=== PATIENT | male | born 1965 | race Caucasian/White ===

== ENCOUNTER → 2018-05-31 | Outpatient (CLI) | payer BC ==
--- NOTE | 2018-05-31 17:52 | US ---
EXAMINATION TYPE: US carotid duplex BILAT DATE OF EXAM: 05/31/2018 COMPARISON: NONE CLINICAL HISTORY: H53.9 visual disturbance. EXAM MEASUREMENTS: RIGHT: Peak Systolic Velocity (PSV) cm/sec ----- Right CCA: 123.8 ----- Right ICA: 75.6 ----- Right ECA: 115.8 ICA/CCA ratio: 0.6 RIGHT: End Diastole cm/sec ----- Right CCA: 23.6 ----- Right ICA: 16.1 ----- Right ECA: 20.4 LEFT: Peak Systolic Velocity (PSV) cm/sec ----- Left CCA: 113.5 ----- Left ICA: 105.7 ----- Left ECA: 113.5 ICA/CCA ratio: 0.9 LEFT: End Diastole cm/sec ----- Left CCA: 28.0 ----- Left ICA: 21.5 ----- Left ECA: 15.0 VERTEBRALS (direction of flow): Right Vertebral: Antegrade Left Vertebral: Antegrade Rhythm: Normal Abnormally elevated PSV noted proximal bilateral CCA without evidence of stenosis Incidental finding of right thyroid nodule is noted. IMPRESSION: There is antegrade flow in the vertebral arteries. The images and measurements suggest 1 0-20% stenosis in the common and internal carotid arteries. Criteria for Assigning % of Stenosis / Diameter reduction (Estimation based on the indirect measurements of the internal carotid artery velocities (ICA PSV). 1. Normal (no stenosis)=ICA PSV < 125 cm/s: ratio < 2.0: ICA EDV<40 cm/s. 2. Less than 50% stenosis=ICA PSV < 125 cm/s: ratio < 2.0: ICA EDV<40 cm/s. 3. 50 to 69% stenosis=ICA PSV of 125 to 230 cm/s: ration 2.0 ? 4.0: ICA EDV 40-100 cm/s. 4. Greater than 70% stenosis to near occlusion= ICA PSV > 230 cm/s: ratio > 4.0: ICA EDV > 100 cm/s. 5. Near occlusion= ICA PSV velocities may be low or undetectable: variable ratio and ICA EDV. 6. Total occlusion=unable to detect flow.
== END | disposition home or self-care (01) ==
LOC: RADUSWWP 16:04
PROVIDERS: ATTEND Family Medicine
DX: H53.9 Unspecified visual disturbance (principal)
CPT/HCPCS: 93880

== ENCOUNTER → 2018-08-29 | Outpatient (CLI) | payer BC ==
--- NOTE | 2018-08-29 16:06 | US ---
EXAMINATION TYPE: US thyroid st tissue head/neck DATE OF EXAM: 08/29/2018 COMPARISON: NONE CLINICAL HISTORY: E04.1 Thyroid nodule. GLAND SIZE: Right Lobe: 5.4 x 1.7 x 2.0 cm Overall Parenchyma: homogenous Left Lobe: 4.2 x 1.8 x 1.8 cm Overall Parenchyma: homogeneous Isthmus Thickness: 0.4 cm NODULES RIGHT: # of nodules measured on right: 1 1. 1.4 X 0.8 x 0.9 cm hypoechoic solid nodule at the mid pole with well-defined margins. This nodu le is taller than wide and shows intranodular vascularity. LEFT: # of nodules measured on left: 1 1. 0.6 X 0.5 x 0.5 cm hypoechoic solid nodule at the lower pole with well-defined margins. This no dule is wider than tall and shows no intranodular vascularity. ISTHMUS: # of nodules measured in the isthmus: 0 Bilateral neck scanned, no evidence of lymphadenopathy. IMPRESSION: Bilateral heterogenous solid-appearing thyroid nodules in a slightly enlarged thyroid gland. Right th yroid nodule approaches but does not meet size criteria for biopsy at this time. Short-term follow-up is recommended in 6 months for surveillance.
== END ==
LOC: RADUSWWP 15:28
PROVIDERS: ATTEND Family Medicine
DX: E04.2 Nontoxic multinodular goiter (principal)
CPT/HCPCS: 76536

== ENCOUNTER 2018-10-17 22:51 | Emergency (ER) | payer BC ==
[2018-10-17 22:56] VITALS: TEMP 98.2
[2018-10-17] MEDS ORDERED: SODIUM CHLORIDE 0.9% 1,000 ML IV STA (22:59)
[2018-10-17] MEDS ORDERED: ONDANSETRON 4 MG/2 ML VIAL IVP STA (23:12)
[2018-10-17] MEDS ORDERED: HYDROmorphone 0.5 MG/0.5 ML SYRINGE IVP STA (23:12)
[2018-10-17 23:41] LABS: Basophils # (A) 0.1 k/uL (0-0.2); Basophils % (A) 1 %; Eosinophils # (A) 0.3 k/uL (0-0.7); Eosinophils % (A) 3 %; HCT 44.7 % (39.0-53.0); HGB 15.1 gm/dL (13.0-17.5); Lymphocytes # (A) 2.1 k/uL (1.0-4.8); Lymphocytes % (A) 18 %; MCHC 33.8 g/dL (31.0-37.0); MCV 91.7 fL (80.0-100.0); Mean Platelet Volume 7.4; Monocytes # (A) 0.8 k/uL (0-1.0); Monocytes % (A) 7 %; Neutrophils # (A) 8.6 k/uL (1.3-7.7); Neutrophils % (A) 70 %; Platelet Count 215 k/uL (150-450); RBC 4.88 m/uL (4.30-5.90); RDW 13.2 % (11.5-15.5); WBC 12.2 k/uL (3.8-10.6)
--- NOTE | 2018-10-17 23:51 | ED ---
Abdominal Pain HPI - General Source: patient, RN notes reviewed Mode of arrival: ambulatory Limitations: no limitations <Nam Colin - Last Filed: 10/18/18 01:14> <Vida Ford - Last Filed: 10/18/18 03:05> - General Chief Complaint: Abdominal Pain Stated Complaint: Abd Pain Time Seen by Provider: 10/17/18 22:59 - History of Present Illness Initial Comments: 53-year-old male presents emergency Department with chief complaint of upper abdominal pain. Patient states his started around 4:00pm. Patient had not ate since 12. Patient states that he had normal bowel movement today with no melena or hematochezia. Patient denies any current nausea vomiting, dysuria hematuria. Patient states that pain is worse when he lays down. He states that in his epigastric to mid abdominal region. Patient denies chest pain or shortness of breath. He has had a prior appendectomy no other abdominal surgeries. (Nam Colin) - Related Data Home Medications Medication Instructions Recorded Confirmed Aspirin 81 mg PO DAILY 07/09/16 10/17/18 Atenolol 100 mg PO DAILY 07/09/16 10/17/18 Cholecalciferol [Vitamin D3] 1,000 unit PO DAILY 07/09/16 10/17/18 Citalopram Hydrobromide 20 mg PO DAILY 07/09/16 10/17/18 [Citalopram HBr] Enalapril [Vasotec] 10 mg PO BID 07/09/16 10/17/18 Omeprazole 40 mg PO DAILY 07/09/16 10/17/18 Terazosin [Hytrin] 5 mg PO BID 07/09/16 10/17/18 amLODIPine [Norvasc] 5 mg PO BID 07/09/16 10/17/18 Ibuprofen [Motrin Ib] 800 mg PO Q4-6H PRN 10/17/18 10/17/18 Allergies Allergy/AdvReac Type Severity Reaction Status Date / Time No Known Allergies Allergy Verified 10/17/18 23:07 Review of Systems ROS Other: All systems not noted in ROS Statement are negative. <Nam Colin - Last Filed: 10/18/18 01:14> ROS Other: All systems not noted in ROS Statement are negative. <Vida Ford - Last Filed: 10/18/18 03:05> ROS Statement: Those systems with pertinent positive or pertinent negative responses have been documented in the HPI. Past Medical History Past Medical History: GERD/Reflux, Hypertension, Osteoarthritis (OA) History of Any Multi-Drug Resistant Organisms: None Reported Past Surgical History: Appendectomy Additional Past Surgical History / Comment(s): EYE SURGERY Past Anesthesia/Blood Transfusion Reactions: No Reported Reaction Past Psychological History: Depression Smoking Status: Former smoker Past Alcohol Use History: Occasional Past Drug Use History: None Reported - Past Family History Mother Family Medical History: Cancer Additional Family Medical History / Comment(s): COLON CANCER Brother(s) Family Medical History: Cancer Additional Family Medical History / Comment(s): ESOPHAGEAL CANCER <Nam Colin - Last Filed: 10/18/18 01:14> General Exam Limitations: no limitations General appearance: alert, in no apparent distress Head exam: Present: atraumatic, normocephalic, normal inspection ENT exam: Present: normal exam, normal oropharynx, mucous membranes moist Neck exam: Present: normal inspection. Absent: tenderness, meningismus, lymphadenopathy Respiratory exam: Present: normal lung sounds bilaterally. Absent: respiratory distress, wheezes, rales, rhonchi, stridor Cardiovascular Exam: Present: regular rate, normal rhythm, normal heart sounds. Absent: systolic murmur, diastolic murmur, rubs, gallop, clicks GI/Abdominal exam: Present: soft, tenderness (Mild mid abdominal tenderness), normal bowel sounds. Absent: distended, guarding, rebound, rigid <Nam Colin - Last Filed: 10/18/18 01:14> Vital Signs 10/17/18 10/18/18 22:53 01:45 Temperature 98.2 F 98.2 F Pulse Rate 66 61 Respiratory 18 19 Rate Blood Pressure 158/85 161/79 O2 Sat by Pulse 95 95 Oximetry Medical Decision Making - Lab Data Result diagrams: 10/17/18 23:09 10/17/18 23:09 <Nam Colin - Last Filed: 10/18/18 01:14> - Lab Data Result diagrams: 10/17/18 23:09 10/17/18 23:09 <Vida Ford - Last Filed: 10/18/18 03:05> - Medical Decision Making 53-year-old male presented from for mid abdominal, epigastric discomfort. Patient initially had lab work, ultrasound which revealed mild elevation in lipase and leukocytosis. CT was obtained no acute abnormality. Patient most likely has mild pancreatitis will be discharged with clear liquid diet, pain control antiemetics. Patient follow-up with GI return for any worsening symptoms. (Nam Colin) I was available for consultation in the emergency department. The history and physical exam were done by the midlevel provider. I was consulted for this patient's care. I reviewed the case with the midlevel provider and based on their presentation of the patient, I agree with the assessment, medical decision making and plan of care as documented. (Vida Ford) - Lab Data Lab Results 10/17/18 10/17/18 10/18/18 Range/Units 23:09 23:09 01:04 WBC 12.2 H (3.8-10.6) k/uL RBC 4.88 (4.30-5.90) m/uL Hgb 15.1 (13.0-17.5) gm/dL Hct 44.7 (39.0-53.0) % MCV 91.7 (80.0-100.0) fL MCH 31.0 (25.0-35.0) pg MCHC 33.8 (31.0-37.0) g/dL RDW 13.2 (11.5-15.5) % Plt Count 215 (150-450) k/uL Neutrophils % 70 % Lymphocytes % 18 % Monocytes % 7 % Eosinophils % 3 % Basophils % 1 % Neutrophils # 8.6 H (1.3-7.7) k/uL Lymphocytes # 2.1 (1.0-4.8) k/uL Monocytes # 0.8 (0-1.0) k/uL Eosinophils # 0.3 (0-0.7) k/uL Basophils # 0.1 (0-0.2) k/uL Sodium 140 (137-145) mmol/L Potassium 4.0 (3.5-5.1) mmol/L Chloride 105 (98-107) mmol/L Carbon Dioxide 25 (22-30) mmol/L Anion Gap 10 mmol/L BUN 18 (9-20) mg/dL Creatinine 0.78 (0.66-1.25) mg/dL Est GFR (CKD-EPI)AfAm >90 (>60 ml/min/1.73 sqM) Est GFR (CKD-EPI)NonAf >90 (>60 ml/min/1.73 sqM) Glucose 105 H (74-99) mg/dL Calcium 9.3 (8.4-10.2) mg/dL Total Bilirubin 0.4 (0.2-1.3) mg/dL AST 35 (17-59) U/L ALT 61 (21-72) U/L Alkaline Phosphatase 65 (38-126) U/L Total Protein 7.0 (6.3-8.2) g/dL Albumin 4.3 (3.5-5.0) g/dL Lipase 348 H (23-300) U/L Urine Color Light Yellow Urine Appearance Clear (Clear) Urine pH 5.5 (5.0-8.0) Ur Specific [place] 1.012 (1.001-1.035) Urine Protein Negative (Negative) Urine Glucose (UA) Negative (Negative) Urine Ketones Negative (Negative) Urine Blood Negative (Negative) Urine Nitrite Negative (Negative) Urine Bilirubin Negative (Negative) Urine Urobilinogen <2.0 (<2.0) mg/dL Ur Leukocyte Esterase Negative (Negative) Disposition Is patient prescribed a controlled substance at d/c from ED?: No Time of Disposition: 01:16 <Nam Colin M - Last Filed: 10/18/18 01:14> <Vida Ford P - Last Filed: 10/18/18 03:05> Clinical Impression: Abdominal pain, Pancreatitis Disposition: HOME SELF-CARE Condition: Stable Instructions: Abdominal Pain (ED) Additional Instructions: Please return to the Emergency Department if symptoms worsen or any other concerns. Referrals: Nahun Giron MD [Primary Care Provider] - 1-2 days Dewayne Winston MD [STAFF PHYSICIAN] - 1-2 days
[2018-10-18] LABS: ALT 61 U/L (21-72); AST 35 U/L (17-59); Albumin 4.3 g/dL (3.5-5.0); Alkaline Phosphatase 65 U/L (38-126); Anion Gap 10 mmol/L; Blood Urea Nitrogen 18 mg/dL (9-20); Calcium 9.3 mg/dL (8.4-10.2); Carbon Dioxide 25 mmol/L (22-30); Chloride 105 mmol/L (98-107); Glucose 105 mg/dL (74-99); Lipase 348 U/L (23-300); Sodium 140 mmol/L (137-145); Total Bilirubin 0.4 mg/dL (0.2-1.3)
--- NOTE | 2018-10-18 00:20 | US ---
EXAMINATION TYPE: US gallbladder DATE OF EXAM: 10/17/2018 COMPARISON: NONE CLINICAL HISTORY: Pain. RUQ Pain EXAM MEASUREMENTS: Liver Length: 17 cm Gallbladder Wall: 0.3 cm CBD: 0.3 cm Right Kidney: 11.1 x 4.8 x 4.1 cm Pancreas: Obscured by bowel gas Liver: Increased attenuation Gallbladder: wnl Evidence for sonographic Grewal's sign: No CBD: wnl Right Kidney: wnl IMPRESSION: No gallstones or dilated ducts. There is probably some fatty infiltration of the liver.
--- NOTE | 2018-10-18 00:52 | CT ---
EXAMINATION TYPE: CT abdomen pelvis w con DATE OF EXAM: 10/18/2018 COMPARISON: 05/04/2012 HISTORY: mid to upper abd pain CT DLP: 1640.20 mGycm Automated exposure control for dose reduction was used. TECHNIQUE: Helical acquisition of images was performed from the lung bases through the pelvis. CONTRAST: Performed without Oral Contrast and with IV Contrast, patient injected with 100 mL of Isovue 300. FINDINGS: There is mild pleural thickening at the posterior lung bases. There is no pericardial effusion. There is small hiatal hernia. Liver shows no focal defect. Gallbladder appears normal. Spleen appears normal. There is no pancreati c mass. The bile ducts are not dilated. There is no adrenal mass. The kidneys show satisfactory contrast opacification. There is no hydroneph rosis. There is no retroperitoneal adenopathy. Bladder distends smoothly. Ureters are not dilated. Th ere is small umbilical hernia that contains fat. There is no inguinal hernia. There is no free fluid in the pelvis. Appendix is not seen. There is apparent clips from appendectomy. There is no ascites. There is no sign of free air. There is no evidence of bowel obstruction. There is no mesenteric edema or adenopathy. The lumbar vertebra have normal alignment. There is mild spur formation. There is no compression frac ture. The bony pelvis is intact. IMPRESSION: THERE IS MILD PLEURAL THICKENING AT THE LUNG BASES THAT IS NEW COMPARED TO OLD EXAM. SMALL AMOUNT OF PLEURAL EFFUSION BILATERALLY. NO ACUTE ABNORMALITY SEEN WITHIN THE ABDOMEN AND PELVIS.
[2018-10-18] MEDS ORDERED: ONDANSETRON 4 MG ODT STARTER PACK 2 TAB BTL PO STA (01:16)
[2018-10-18] MEDS ORDERED: ACET/COD 300 MG/30 MG STARTER PACK 6 TAB BTL PO STA (01:16)
[2018-10-18 01:36] LABS: Appearance,Urine Clear (Clear); Bilirubin,Urine Negative (Negative); Blood,Urine Negative (Negative); Color,Urine Light Yellow; Glucose,Urine (UA) Negative (Negative); Ketones,Urine Negative (Negative); Leukocyte Esterase,Urine Negative (Negative); Nitrite,Urine Negative (Negative); PH, Urine 5.5 (5.0-8.0); Protein,Urine Negative (Negative); Specific Gravity,Urine 1.012 (1.001-1.035); Urobilinogen,Urine <2.0 mg/dL (<2.0)
[2018-10-18 01:47] VITALS: BP 161/79; PULSE 61; RESP 19
== END 2018-10-18 01:45 | disposition home or self-care (01) ==
LOC: EC 22:51
DX: K85.90 Acute pancreatitis without necrosis or infection, unspecified (principal); I10 Essential (primary) hypertension; K21.9 Gastro-esophageal reflux disease without esophagitis; F32.9 Major depressive disorder, single episode, unspecified; M19.90 Unspecified osteoarthritis, unspecified site; Z87.891 Personal history of nicotine dependence; Z79.82 Long term (current) use of aspirin; Z79.899 Other long term (current) drug therapy; Z90.49 Acquired absence of other specified parts of digestive tract; Z83.79 Family history of other diseases of the digestive system
CPT/HCPCS: 99284; 96374; 96375; 96361; 36415; 80053; 83690; 85025; 81003; 76705; 74177; J2405; S0119; J1170; Q9967

== ENCOUNTER → 2019-12-08 | Outpatient (CLI) | payer BC ==
--- NOTE | 2019-12-08 07:30 | US ---
EXAMINATION TYPE: US thyroid st tissue head/neck DATE OF EXAM: 12/08/2019 COMPARISON: US 08/29/2018 CLINICAL HISTORY: E04.1 Thyroid Nodule. GLAND SIZE: Right Lobe: 5.6 x 1.7 x 2.2 cm Overall Parenchyma: homogenous Left Lobe: 4.5 x 1.8 x 1.9 cm Overall Parenchyma: homogeneous Isthmus Thickness: 0.3 cm NODULES RIGHT: # of nodules measured on right: 1 1. 2.1 X 1.1 x 1.2 cm hypoechoic solid nodule at the upper pole with well-defined margins; present with microcalcifications. This nodule is wider than tall and shows intranodular vascularity. Prior size: 1.4 x 0.8 x 0.9 cm LEFT: # of nodules measured on left: 1 1. 0.5 X 0.5 x 0.9 cm hypoechoic solid nodule at the lower pole with well-defined margins; . This nodule is wider than tall and shows no intranodular vascularity. Prior size: 0.5 x 0.5 x 0.5 cm ISTHMUS: # of nodules measured in the isthmus: 0 Bilateral neck scanned, no evidence of lymphadenopathy. IMPRESSION: Interval growth of the right thyroid nodule previously measuring up to 1.4 cm and now whitney suring 2.1 cm. Fine-needle aspiration could be considered given interval growth.
== END | disposition home or self-care (01) ==
LOC: RADUSWWP 06:53
PROVIDERS: ATTEND Family Medicine
DX: E04.1 Nontoxic single thyroid nodule (principal)
CPT/HCPCS: 76536

== ENCOUNTER 2020-01-11 09:01 | Day surgery (SDC) | payer BC ==
[2020-01-11 09:42] VITALS: RESP 18; TEMP 98.2
[2020-01-11 10:09] VITALS: BP 127/72; PULSE 73
--- NOTE | 2020-01-11 10:14 | US ---
ULTRASOUND GUIDED FNA THYROID BIOPSY: CLINICAL HISTORY: Right thyroid nodule FINDINGS: The procedure was explained to the patient. The risks, complications, benefits and alternatives were discussed and any questions were answered. Informed consent was obtained. Patient was placed supin e on the ultrasound table and prepped and draped in the usual sterile fashion. Utilizing a 25 gauge needle, five passes were made into the requested right thyroid nodule. Patient was stable throughout the procedure. Pathology is pending. All elements of maximal barrier technique were utilized. IMPRESSION: 1. Successful ultrasound guided FNA thyroid biopsy.
== END 2020-01-11 10:09 | disposition home or self-care (01) ==
LOC: RADPROMAIN 09:01
PROVIDERS: ATTEND Otolaryngology
DX: E04.1 Nontoxic single thyroid nodule (principal)
CPT/HCPCS: 10005; 76942; 88173; 88305

== ENCOUNTER → 2023-01-04 | Outpatient (CLI) | payer BC ==
--- NOTE | 2023-01-05 09:55 | CA ---
Transthoracic Echo Report Name: Abelardo Soto Age: 57 Gender: M : 1965 Exam Date: 01/04/2023 16:01 Exam Location: [facility] Ht (in): 68 Wt (lb): 238 Ordering Physician: Nahun Giron MD Attending/Referring Phys: Glendy Shaw PAC [employer] Kyle Samuels RDCS Procedure CPT: Indications: I10 ESSENTIAL (PRIMARY) HYPERTENSION Cardiac Hx: HTN; Obesity Technical Quality: Fair; the first 12 images were captured with a defect probe. Contrast 1: Total Dose (mL): Contrast 2: Total Dose (mL): MEASUREMENTS (Male / Female) Normal Values 2D ECHO LV Diastolic Diameter PLAX 4.4 cm 4.2 - 5.9 / 3.9 - 5.3 cm LV Systolic Diameter PLAX 3.2 cm IVS Diastolic Thickness 1.1 cm 0.6 - 1.0 / 0.6 - 0.9 cm LVPW Diastolic Thickness 1.2 cm 0.6 - 1.0 / 0.6 - 0.9 cm LV Relative Wall Thickness 0.5 RV Internal Dim ED PLAX 4.8 cm LVOT Diameter 2.0 cm LA Systolic Diameter LX 4.3 cm 3.0 - 4.0 / 2.7 - 3.8 cm LV Diastolic Volume MOD BP 137.8 cm??? 67 - 155 / 56 - 104 cm??? LV Systolic Volume MOD BP 40.8 cm??? 22 - 58 / 19 - 49 cm??? LV Ejection Fraction MOD BP 70.4 % >= 55 % LV Diastolic Volume MOD 4C 134.9 cm??? LV Systolic Volume MOD 4C 35.8 cm??? LV Ejection Fraction MOD 4C 73.4 % LV Diastolic Length 4C 8.7 cm LV Systolic Length 4C 7.0 cm LV Diastolic Volume MOD 2C 132.6 cm??? LV Systolic Volume MOD 2C 43.6 cm??? LV Ejection Fraction MOD 2C 67.1 % LV Diastolic Length 2C 8.2 cm LV Systolic Length 2C 6.5 cm Ascending Aorta Diameter 2.4 cm M-MODE Aortic Root Diameter MM 2.9 cm LA Systolic Diameter MM 4.4 cm LA Ao Ratio MM 1.5 MV E Point Septal Separation 0.9 cm AV Cusp Separation MM 1.5 cm DOPPLER AV Peak Velocity 196.6 cm/s AV Peak Gradient 15.5 mmHg MR Peak Velocity 456.9 cm/s MR Peak Gradient 83.5 mmHg Mitral E Point Velocity 110.8 cm/s Mitral A Point Velocity 86.8 cm/s Mitral E to A Ratio 1.3 MV Deceleration Time 289.8 ms MV E' Velocity 9.6 cm/s Mitral E to MV E' Ratio 11.6 TR Peak Velocity 251.8 cm/s TR Peak Gradient 25.4 mmHg Right Ventricular Systolic Press 33.4 mmHg PV Peak Velocity 134.4 cm/s PV Peak Gradient 7.2 mmHg FINDINGS Left Ventricle Left ventricular ejection fraction is estimated at 55-60 %. Borderline left ventricular hypertrophy. Grade 1 diastolic dysfunction. Normal basal systolic function. Right Ventricle Normal right ventricular size and function. Right Atrium Normal right atrial size. Left Atrium Left atrial dilatation. Mitral Valve Mitral valve thickened. Trace mitral regurgitation. Aortic Valve Trileaflet aortic valve. Mild aortic sclerosis Tricuspid Valve Trace to mild tricuspid regurgitation. Pulmonic Valve Trace to mild pulmonic regurgitation. Pericardium Normal pericardium. No pericardial effusion. Aorta Normal size aortic root and proximal ascending aorta. CONCLUSIONS Technically poor quality study grossly normal LV size and systolic function with mild mitral and tricuspid regurgitation. No pericardial effusion Previewed by: Dr. Kassy Cid MD (Electronically Signed) Final Date: 05 January 2023 09:54
== END | disposition home or self-care (01) ==
LOC: RADECHMAIN 15:42
PROVIDERS: ATTEND Family Medicine
DX: I08.1 Rheumatic disorders of both mitral and tricuspid valves (principal); I10 Essential (primary) hypertension
CPT/HCPCS: 93306

== ENCOUNTER → 2023-11-18 | Outpatient (CLI) | payer BC ==
--- NOTE | 2023-11-18 12:38 | US ---
EXAMINATION TYPE: US thyroid st tissue head/neck DATE OF EXAM: 11/18/2023 COMPARISON: NONE CLINICAL INDICATION: Male, 58 years old with history of R59.0 LOCALIZED ENLARGED LYMPH NODES; Pt stat es palpable lump left supraclavicular area, previous thyroidectomy due to thyroid cancer in 2019 FINDINGS: [employer] Chair notes: Left supraclavicular area scanned where pt feels palpable- superficial solid le uriah visualized= 1.6 x 0.7 x 1.6 cm. No vascularity within lesion. IMPRESSION: A 1.6 x 1.6 x 0.7 cm ovoid isoechoic lesion within the subcutaneous fat layer at the patient's left s upraclavicular palpable site. Consider a lipoma or other mesenchymal tumor. Clinical follow-up can be performed. If enlargement or symptomatic, surgical evaluation can be considered.
== END | disposition home or self-care (01) ==
LOC: RADUSWWP 10:20
PROVIDERS: ATTEND Family Medicine
DX: L98.8 Other specified disorders of the skin and subcutaneous tissue (principal); R59.0 Localized enlarged lymph nodes; Z85.850 Personal history of malignant neoplasm of thyroid; Z90.89 Acquired absence of other organs
CPT/HCPCS: 76536

== ENCOUNTER → 2024-03-23 | Outpatient (CLI) | payer BC ==
--- NOTE | 2024-03-23 10:57 | CTL ---
EXAMINATION TYPE: CT Low Dose Lung DATE OF EXAM ORDERED: 03/23/2024 History: Lung cancer screening CT DLP: 127.[address] CTDI: 4.0 mGy Automated exposure control for dose reduction was used. Comparison: None TECHNIQUE: Low dose computed tomography scan was performed through the chest at 1 mm thick sections a nd reconstructed images in multiple planes at 1 mm and [address] DIAGNOSTIC QUALITY: Satisfactory FINDINGS: There is a 4.1 x 3.2 cm macrolobulated mass in the right infrahilar region. There is a probable 2.7 c m right hilar lymph node. The findings are highly suspicious for neoplasm and PET scan would be usefu l for further evaluation. There are no left lung nodules. There are mild to moderate emphysematous changes. The great vessels the chest are normal and is no mediastinal or axillary adenopathy. Adenopathy. Limited scanning of the upper abdomen reveals no gross abnormality. No focal osseous lesions are seen.. IMPRESSION: Findings highly suspicious for right lung neoplasm with hilar adenopathy as described above. Further workup is warranted. PET scan would be useful for further evaluation.
== END | disposition home or self-care (01) ==
LOC: RADCTMAIN 06:56
PROVIDERS: ATTEND Family Medicine
DX: Z12.2 Encounter for screening for malignant neoplasm of respiratory organs (principal); F17.210 Nicotine dependence, cigarettes, uncomplicated
CPT/HCPCS: 71271

== ENCOUNTER → 2024-06-16 | Outpatient (CLI) | payer BC ==
--- NOTE | 2024-06-16 14:30 | PE ---
EXAMINATION TYPE: PET CT fusion skull to thigh DATE OF EXAM: 06/16/2024 CLINICAL INDICATION:Male, 59 years old with history of R91.8 NONSPECIFIC ABNORMAL FINDING OF LUNG FIE LD; TECHNIQUE: Following the intravenous administration of 10.68 mCi of F-18 FDG, whole body images are performed from the skull base to the midthigh. Images are reviewed on the computer in the coronal, axial, and sagittal planes. Reconstructed rotating images are created on independent workstation and reviewed on the computer. A non-contrast CT is performed in conjunction with the PET scan. Glucose level 110 mg/dL CT DLP: 978.37 mGycm, Automated exposure control for dose reduction was used. COMPARISON: CT 03/23/2024, 10/18/2018, PET/CT None, MRI: None FINDINGS: Mediastinal SUV mean is 2.1. Hepatic parenchyma SUV mean is 2.9. SKULL BASE AND NECK: Right supraclavicular lymph node measuring 0.7 cm with a maximum SUV of 17.6. Physiologic uptake within the vocal cords. CHEST, MEDIASTINUM, AND HILAR REGION: Right precarinal lymph node measuring 1.1 cm short axis with a maximum SUV of 7.7. Subcarinal lymph node measuring 2.6 cm short axis with a maximum SUV of 14.9. Right posterior upper lung mass extending towards the pulmonary rashida measuring 7.6 x 7.4 cm, previous ly measured 4.1 x 3.2 cm. Demonstrates a maximum SUV of 25.5. Right hilar lymph node measuring grossly 1.4 cm with a maximum SUV of 11.2. ABDOMEN AND PELVIS: Left adrenal gland nodule measuring 1.0 cm with a maximum SUV of 9.1. Physiologic uptake within the bowel. No other suspicious uptake within the abdomen or pelvis MUSCULOSKELETAL STRUCTURES: Multiple lytic lesions demonstrated throughout the osseous structures demonstrating focal radiotracer uptake. These include the distal right clavicle, right acromion, right aspect of the C7 vertebral b juana, right aspect of the T1 vertebral body, left posterior second rib, medial left scapula, medial le ft clavicle, anterior T4 vertebral body, right T4 transverse process, right T5 process, right posteri or fifth rib, right posterior lateral sixth rib, right lateral T10 vertebral body, left lateral T11 v ertebral body, right lateral L2 vertebral body, anterior left L4 vertebral body, left lateral L5 vert ebral body, right lateral ninth rib, bilateral iliac bones, right superior pubic ramus, and the sacru m. Examples include: left posterior rib lytic lesion measuring 2.9 x 1.5 cm with a maximum SUV of 23.2. Anterior left L4 vertebral body measuring 3.1 cm with a maximum SUV of 17.0. OTHER CT: Postthyroidectomy changes. Cardiomegaly. Mild bilateral gynecomastia. Small left pleural ef fusion with adjacent atelectasis. Small fat filled umbilical hernia. Appendectomy changes. Left testi cular prosthesis. 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 IMPRESSION: 1. Increased size of now 7.6 cm marked FDG avid right upper lung mass from prior CT when it measured up to 4.1 cm. Most consistent with primary lung cancer. 2. Metastatic disease with scattered FDG avid osseous metastasis, mediastinal and right hilar FDG av id adenopathy, subcentimeter FDG avid right supraclavicular metastatic lymph node, and FDG avid left adrenal gland metastatic nodule. 3. Small left pleural effusion with adjacent atelectasis.
== END | disposition home or self-care (01) ==
LOC: RADPETMAIN 06:23
PROVIDERS: ATTEND Internal Medicine Hematology & Oncology
DX: C79.51 Secondary malignant neoplasm of bone (principal); C79.72 Secondary malignant neoplasm of left adrenal gland; R91.8 Other nonspecific abnormal finding of lung field; J90 Pleural effusion, not elsewhere classified; R59.0 Localized enlarged lymph nodes
CPT/HCPCS: 78815; A9552

== ENCOUNTER 2024-07-06 17:53 | Inpatient (IN) | payer BC ==
--- NOTE | 2024-07-06 18:38 | ED ---
General Adult HPI - General Chief complaint: Recheck/Abnormal Lab/Rx Stated complaint: Chest pain Time Seen by Provider: 07/06/24 18:23 Source: patient Mode of arrival: ambulatory Limitations: no limitations - History of Present Illness Initial comments: Dictation was produced using [employer] dictation software. please excuse any grammatical, word or spelling errors. Chief Complaint: 59-year-old male presents emergency department for inpatient pain treatment and inpatient radiation treatment History of Present Illness: Patient is a 59-year-old male has a history of lung cancer with metastatic spread. Patient states that he has chronic total body p ain however it has been significantly worse. States that his pain is not being managed with current outpatient therapies. He takes fentanyl patch along with oral analgesics. He had a conversation with oncology told him that he should come to the emergency department to be admitted for inpatient pain control and radiation treatment. Patient [place] any fevers. He does not have any other complaints The ROS documented in this emergency department record has been reviewed and confirmed by me. Those systems with pertinent positive or negative responses have been documented in the HPI. All other systems are other negative and/or noncontributory. - Related Data Home Medications Medication Instructions Recorded Confirmed Aspirin 81 mg PO DAILY 07/09/16 01/03/20 Cholecalciferol [Vitamin D3] 1,000 unit PO DAILY 07/09/16 01/03/20 Citalopram Hydrobromide 20 mg PO DAILY 07/09/16 01/03/20 [Citalopram HBr] Enalapril [Vasotec] 10 mg PO BID 07/09/16 01/03/20 Omeprazole 40 mg PO DAILY 07/09/16 01/03/20 Terazosin [Hytrin] 5 mg PO BID 07/09/16 01/03/20 amLODIPine [Norvasc] 5 mg PO BID 07/09/16 01/03/20 atenoloL 100 mg PO DAILY 07/09/16 01/03/20 Ibuprofen [Motrin Ib] 800 mg PO Q4-6H PRN 10/17/18 01/03/20 Allergies Allergy/AdvReac Type Severity Reaction Status Date / Time No Known Allergies Allergy Verified 07/06/24 18:00 Review of Systems ROS Statement: Those systems with pertinent positive or pertinent negative responses have been documented in the HPI. ROS Other: All systems not noted in ROS Statement are negative. Past Medical History Past Medical History: GERD/Reflux, Hypertension, Osteoarthritis (OA) History of Any Multi-Drug Resistant Organisms: None Reported Past Surgical History: Appendectomy Additional Past Surgical History / Comment(s): EYE SURGERY Past Anesthesia/Blood Transfusion Reactions: No Reported Reaction Past Psychological History: Anxiety, Depression Smoking Status: Never smoker Past Alcohol Use History: Occasional Past Drug Use History: None Reported - Past Family History Mother Family Medical History: Cancer Additional Family Medical History / Comment(s): COLON CANCER Brother(s) Family Medical History: Cancer Additional Family Medical History / Comment(s): ESOPHAGEAL CANCER General Exam - General Exam Comments Initial Comments: PHYSICAL EXAM: General Impression: Alert and oriented x3, acute distress secondary to pain HEENT: Normocephalic atraumatic, extra-ocular movements intact, pupils equal and reactive to light bilaterally, mucous membranes moist. Cardiovascular: Heart regular rate and rhythm Chest: Able to complete full sentences, no retractions, no tachypnea Abdomen: abdomen soft, non-tender, non-distended, no organomegaly Musculoskeletal: Pulses present and equal in all extremities, no peripheral edema Motor: no focal deficits noted Neurological: CN II-XII grossly intact, no focal motor or sensory deficits noted Skin: Intact with no visualized rashes Psych: Normal affect and mood Limitations: no limitations Course Vital Signs 07/06/24 07/06/24 17:58 19:43 Temperature 100.2 F H Pulse Rate 90 91 Respiratory 20 22 Rate Blood Pressure 148/79 148/87 O2 Sat by Pulse 94 L 85 L Oximetry EKG Findings - EKG Comments: EKG Findings:: My EKG interpretation: Ventricular rate sinus rhythm,. 174, QRS 126, QTc 402. No ID prolongation, no QTC prolongation, no ST or T-wave changes noted. Overall, this EKG is unremarkable Medical Decision Making - Medical Decision Making Was pt. sent in by a medical professional or institution (, PA, STUCC[employer] P[employer]ERER, urgent care, hospital, or correction...) When possible be specific @ -Sent in by oncology office Did you speak to anyone other than the patient for history (EMS, parent, family, police, friend...)? What history was obtained from this source @ - at the bedside as described above Did you review nursing and triage notes (agree or disagree)? Why? @ -I reviewed and agree with nursing and triage notes Were old charts reviewed (outside hosp., previous admission, EMS record, old EKG, old radiological studies, urgent care reports/EKG's, correction records)? Report findings @ -No old charts were reviewed Differential Diagnosis (chest pain, altered mental status, abdominal pain women, abdominal pain men, vaginal bleeding, musculoskeletal, weakness, fever, dyspnea, syncope, headache, dizziness, GI bleed, back pain, seizure, CVA, palpatations, m ental health)? @ -Sepsis, myalgia, viral syndrome EKG interpreted by me (3pts min.). @ - X-rays interpreted by me (1pt min.). @ -X-ray is shows lobar pneumonia CT interpreted by me (1pt min.). @ -None done U/S interpreted by me (1pt. min.). @ -None done What testing was considered but not performed or refused? (CT, X-rays, U/S, labs)? Why? @ -None What meds were considered but not given or refused? Why? @ -None Was smoking cessation discussed for >3mins.? @ -No Were there social determinants of health that impacted care today? How? (Homelessness, low income, unemployed, alcoholism, drug addiction, transportation, low edu. Level, literacy, decrease access to med. care, custodial, rehab)? @ -No Was there de-escalation of care discussed even if they declined (Discuss DNR or withdrawal of care, Hospice)? DNR status @ -No What co-morbidities impacted this encounter? (DM, HTN, Smoking, COPD, CAD, Cancer, CVA, ARF, Chemo, Hep., AIDS, mental health diagnosis, sleep apnea, morbid obesity)? @ -Metastatic lung cancer Was patient admitted / discharged? Hospital course, mention meds given and route, prescriptions, significant lab abnormalities, going to OR and other pertinent info. @ -59-year-old male presents emergency department for body pain he was sent in by oncology office for inpatient radiation inpatient pain control. Vital signs upon arrival shows low-grade temperature 100.2, rest of vital signs within acceptable limits. Repeat vital signs shows 85% on room air. Laboratory evaluation obtained. No leukocytosis. Hyponatremia 129. Viral testing is negative. X-ray shows lobar suspicious for pneumonia versus cancer. Patient given antibiotics. Patient given analgesics will be admitted with consultation to oncology. Did you discuss the management of the patient with other professionals (professionals i.e. , PA, [employer] P[employer]ER, lab, RT, psych nurse, social worker aide, pipe finishing supervisor, teacher, strike warfare/missile systems officer, block and case maker)? Give summary @ -Case discussed with hospitalist for admission Was critical care preformed (if so, how long)? @ -Yes, 33 minutes for acute hypoxic respiratory failure Undiagnosed new problem with uncertain prognosis? @ -No Drug Therapy requiring intensive monitoring for toxicity (Heparin, Nitro, Insulin, Cardizem)? @ -No Were any procedures done? @ -No Diagnosis/symptom? Acute, or Chronic, or Acute on Chronic? Uncomplicated (without systemic symptoms) or Complicated (systemic symptoms)? @ -Lobar infiltrate suspicious for pneumonia complicated by hypoxia Side effects of treatment? @ -No Exacerbation, Progression, or Severe Exacerbation? @ -No Poses a threat to life or bodily function? How? (Chest pain, [place], CO, pneumonia, PE, COPD, DKA, ARF, appy, cholecystitis, CVA, Diverticulitis, Homicidal, Suicidal, threat to staff... and all critical care pts) @ -yes - Lab Data Result diagrams: 07/06/24 19:18 07/06/24 19:18 Lab Results 07/06/24 07/06/24 07/06/24 Range/Units 19:18 19:18 19:18 WBC 8.2 (3.8-10.6) k/uL RBC 3.59 L (4.30-5.90) m/uL Hgb 10.8 L (13.0-17.5) gm/dL Hct 32.4 L (39.0-53.0) % MCV 90.4 (80.0-100.0) fL MCH 30.2 (25.0-35.0) pg MCHC 33.4 (31.0-37.0) g/dL RDW 13.2 (11.5-15.5) % Plt Count 267 (150-450) k/uL MPV 7.3 Neutrophils % 79 % Lymphocytes % 9 % Monocytes % 8 % Eosinophils % 1 % Basophils % 0 % Neutrophils # 6.5 (1.3-7.7) k/uL Lymphocytes # 0.7 L (1.0-4.8) k/uL Monocytes # 0.7 (0-1.0) k/uL Eosinophils # 0.1 (0-0.7) k/uL Basophils # 0.0 (0-0.2) k/uL PT 11.4 (10.0-12.5) sec INR 1.1 (<1.2) APTT 23.5 (22.0-30.0) sec Sodium 129 L (137-145) mmol/L Potassium 4.4 (3.5-5.1) mmol/L Chloride 92 L (98-107) mmol/L Carbon Dioxide 30 (22-30) mmol/L Anion Gap 7 mmol/L BUN 17 (9-20) mg/dL Creatinine 0.62 L (0.66-1.25) mg/dL Est GFR (CKD-EPI)AfAm >90 (>60 ml/min/1.73 sqM) Est GFR (CKD-EPI)NonAf >90 (>60 ml/min/1.73 sqM) Glucose 97 (74-99) mg/dL Plasma Lactic Acid Eliot (0.7-2.0) mmol/L Calcium 9.0 (8.4-10.2) mg/dL Total Bilirubin 0.8 (0.2-1.3) mg/dL AST 36 (17-59) U/L ALT 37 (4-49) U/L Alkaline Phosphatase 94 (38-126) U/L Troponin I (0.000-0.034) ng/mL Total Protein 6.3 (6.3-8.2) g/dL Albumin 3.3 L (3.5-5.0) g/dL Influenza Type A (PCR) (Not Detectd) Influenza Type B (PCR) (Not Detectd) RSV (PCR) (Not Detectd) SARS-CoV-2 (PCR) (Not Detectd) 07/06/24 07/06/24 07/06/24 Range/Units 19:18 19:18 19:18 WBC (3.8-10.6) k/uL RBC (4.30-5.90) m/uL Hgb (13.0-17.5) gm/dL Hct (39.0-53.0) % MCV (80.0-100.0) fL MCH (25.0-35.0) pg MCHC (31.0-37.0) g/dL RDW (11.5-15.5) % Plt Count (150-450) k/uL MPV Neutrophils % % Lymphocytes % % Monocytes % % Eosinophils % % Basophils % % Neutrophils # (1.3-7.7) k/uL Lymphocytes # (1.0-4.8) k/uL Monocytes # (0-1.0) k/uL Eosinophils # (0-0.7) k/uL Basophils # (0-0.2) k/uL PT (10.0-12.5) sec INR (<1.2) APTT (22.0-30.0) sec Sodium (137-145) mmol/L Potassium (3.5-5.1) mmol/L Chloride (98-107) mmol/L Carbon Dioxide (22-30) mmol/L Anion Gap mmol/L BUN (9-20) mg/dL Creatinine (0.66-1.25) mg/dL Est GFR (CKD-EPI)AfAm (>60 ml/min/1.73 sqM) Est GFR (CKD-EPI)NonAf (>60 ml/min/1.73 sqM) Glucose (74-99) mg/dL Plasma Lactic Acid Eliot 1.5 (0.7-2.0) mmol/L Calcium (8.4-10.2) mg/dL Total Bilirubin (0.2-1.3) mg/dL AST (17-59) U/L ALT (4-49) U/L Alkaline Phosphatase (38-126) U/L Troponin I <0.012 (0.000-0.034) ng/mL Total Protein (6.3-8.2) g/dL Albumin (3.5-5.0) g/dL Influenza Type A (PCR) Not Detected (Not Detectd) Influenza Type B (PCR) Not Detected (Not Detectd) RSV (PCR) Not Detected (Not Detectd) SARS-CoV-2 (PCR) Not Detected (Not Detectd) Disposition Clinical Impression: Pneumonia Disposition: ADMITTED IP TO THIS [facility] Condition: Fair Referrals: Nahun Giron MD [Primary Care Provider] - 1-2 days Decision Time: 20:54
[2024-07-06] MEDS: HYDROmorphone 1 MG/ML 1 ML SYRINGE IVP STA ×2 (19:21→20:54)
[2024-07-06] MEDS: SODIUM CHLORIDE 0.9% 1,000 ML IV STA (19:21)
[2024-07-06 20:16] LABS: Basophils % (A) 0 %; Eosinophils # (A) 0.1 k/uL (0-0.7); Eosinophils % (A) 1 %; HCT 32.4 % (39.0-53.0); HGB 10.8 gm/dL (13.0-17.5); Lymphocytes # (A) 0.7 k/uL (1.0-4.8); Lymphocytes % (A) 9 %; MCH 30.2 pg (25.0-35.0); MCHC 33.4 g/dL (31.0-37.0); MCV 90.4 fL (80.0-100.0); Mean Platelet Volume 7.3; Monocytes # (A) 0.7 k/uL (0-1.0); Monocytes % (A) 8 %; Neutrophils # (A) 6.5 k/uL (1.3-7.7); Neutrophils % (A) 79 %; Platelet Count 267 k/uL (150-450); RBC 3.59 m/uL (4.30-5.90); RDW 13.2 % (11.5-15.5); WBC 8.2 k/uL (3.8-10.6)
--- NOTE | 2024-07-06 20:24 | XR ---
EXAMINATION TYPE: XR chest 2V DATE OF EXAM: 07/06/2024 COMPARISON: NONE HISTORY: Shortness of breath TECHNIQUE: Frontal and lateral views of the chest are obtained. FINDINGS: Scattered senescent parenchymal changes noted. Hyperinflation compatible with COPD. Right lower lobe airspace consolidation suspicious for pneumonia. Correlate clinically and progress s tudies are advised. Heart size is stable. Mediastinal structures are stable and grossly unremarkable. No evidence for hilar prominence. Degenerative changes dorsal spine. IMPRESSION: 1. Right lower lobe airspace consolidation suspicious for pneumonia. Correlate clinically and progres s studies are advised. [facility], , 07/06/2024 8:21 PM
[2024-07-06 20:25] LABS: INR 1.1 (<1.2); Partial Thromboplastin Time 23.5 sec (22.0-30.0); Prothrombin Time 11.4 sec (10.0-12.5)
[2024-07-06 20:32] LABS: ALT 37 U/L (4-49); AST 36 U/L (17-59); African American GFR (CKD) >90 (>60 ml/min/1.73 sqM); Albumin 3.3 g/dL (3.5-5.0); Alkaline Phosphatase 94 U/L (38-126); Anion Gap 7 mmol/L; Blood Urea Nitrogen 17 mg/dL (9-20); Carbon Dioxide 30 mmol/L (22-30); Chloride 92 mmol/L (98-107); Glucose 97 mg/dL (74-99); Non-African American GFR(CKD) >90 (>60 ml/min/1.73 sqM); Potassium 4.4 mmol/L (3.5-5.1); Sodium 129 mmol/L (137-145); Total Bilirubin 0.8 mg/dL (0.2-1.3); Total Protein 6.3 g/dL (6.3-8.2)
[2024-07-06] MEDS ORDERED: ONDANSETRON 4 MG/2 ML VIAL IVP PRN (20:49)
[2024-07-06] MEDS ORDERED: NALOXONE 0.4 MG/ML 1 ML VIAL IV PRN (20:49)
[2024-07-06] MEDS ORDERED: PNEUMONIA PROTOCOL UTILIZED 1 EACH MISC PO PRN (20:51)
[2024-07-06] MEDS: SODIUM CHLORIDE 0.9% 1,000 ML IV SCH (22:06)
[2024-07-07] MEDS: HYDROmorphone 1 MG/ML 1 ML SYRINGE IVP PRN (00:16)
--- NOTE | 2024-07-07 00:22 | P.HPIM ---
History of Present Illness H&P Date: 07/06/24 Chief Complaint: Severe pain Patient is a 59-year-old male with PMH of metastatic lung cancer (w/ mets to bone and liver) currently undergoing radiation therapy presented to the ED with severe pain. The patient mentions that he has chronic pain all over his body for the past 2 months. He states the pain is excruciating with 10 out of 10 severity. Patient reports inadequate relief with Fentanyl patch and oral morphine at home. His oncologist recommended him to come to the ED for inpatient pain treatment. He reports weakness of his arms and legs as well as mild paresth esias of extremities. Yesterday he had fever of 100.5 F. He also complains of some shortness of breath, coughing and fatigue as well as constipation. He was at the [facility] a couple of days ago with similar symptoms where he received some pain medications. He mentions the medications helped with the pain for the night but it came back the next day. In the ED he was treated with Dilaudid for pain management and oncology consulted for intractable cancer pain management and cancer treatment. Vitals: T 100.2 F, P 90 bpm, RR 20, BP 148/79, O2 sat 96% on 2 L nasal cannula Chest x-ray: Right lower lobe airspace consolidation suspicious for pneumonia Labs: WBC 8.2, hemoglobin 10.8, sodium 129, chloride 92, lactic acid 1.5, albumin 3.3, troponin < 0.012 Respiratory panel: Not detected ED documentation reviewed. Review of systems: Pertinent positives and negatives as discussed in HPI, a complete review of systems was performed and all other systems are negative. PMH: Lung cancer, hypertension PSH: Thyroidectomy FMH: Hypertension, diabetes Social history: Tobacco: Former smoker Alcohol: Denies use Recreational drugs: Denies use Travel: No recent travel history Sick contacts: None Physical examination: Vital signs reviewed General: non toxic, no distress, appears at stated age, obese Derm: no unusual rashes/lesions, warm Head: atraumatic, normocephalic, symmetric Eyes: EOMI, anicteric sclera ENT: Nose and ears atraumatic Mouth: no lip lesion, mucus membranes moist Cardiovascular: S1S2 reg, no murmur, no edema Lungs: CTA bilateral, no rhonchi, no rales, no accessory muscle use Abdominal: Mild generalized tenderness to palpation , soft Ext: muscle strength 4 out of 5 in all 4 extremities grossly, no gross muscle atrophy, no contractures Neuro: CN II-XI grossly intact, no gross focal neuro deficits Psych: Alert, oriented, appropriate affect Assessment/Plan: Patient is a 59-year-old male with metastatic lung cancer presented to the ED with severe pain and admission accepted for intractable cancer pain management and cancer treatment. #. Metastatic lung cancer with intractable generalized pain C/W Dilaudid 2 mg IV every 3 hours as needed for pain management - C/w home fentanyl doses once reconciled Oncology consulted #. Hypoxia secondary to possible community acquired pneumonia Chest x-ray shows right lower lobe airspace consolidation suspicious for pneumonia - Patient c/o SOB and cough C/W azithromycin 5 mg p.o. daily, ceftriaxone 2 g IVPB every 24 hours - Blood culture and sputum culture ordered - WNL lactic acid 1.5, WBC 8.2 Respiratory panel negative Pulmonology consulted #. Normocytic anemia (no recent baseline available for comparison) Low hemoglobin 10.8, normal MCV 90.4 Monitor CBC #. Hypochloremic Hyponatremia Low sodium 129 Monitor BMP #. Hypertension C/W amlodipine 5 mg p.o. daily, atenolol 100 mg p.o. daily, enalapril 10 mg p.o. daily, metoprolol 20 mg p.o. twice daily #. History of anxiety/depression C/W citalopram 20 mg p.o. daily #. History of thyroidectomy C/W levothyroxine 200 mcg p.o. daily #. History of GERD C/W omeprazole 40 mg p.o. daily F: 0.9 normal saline 20 mL/h E: Replete as required N: Regular diet A: Bedrest DVT prophylaxis: Lovenox 40 mg SQ daily The patient is admitted with an anticipated more than 2 midnight stay for evaluation of severe pain CODE STATUS: Full code Discussed with: Patient Anticipated discharge place: Home Past Medical History Past Medical History: GERD/Reflux, Hypertension, Osteoarthritis (OA) History of Any Multi-Drug Resistant Organisms: None Reported Past Surgical History: Appendectomy Additional Past Surgical History / Comment(s): EYE SURGERY Past Anesthesia/Blood Transfusion Reactions: No Reported Reaction Past Psychological History: Anxiety, Depression Smoking Status: Never smoker Past Alcohol Use History: Occasional Past Drug Use History: None Reported - Past Family History Mother Family Medical History: Cancer Additional Family Medical History / Comment(s): COLON CANCER Brother(s) Family Medical History: Cancer Additional Family Medical History / Comment(s): ESOPHAGEAL CANCER Medications and Allergies Home Medications Medication Instructions Recorded Confirmed Type Aspirin 81 mg PO DAILY 07/09/16 01/03/20 History Cholecalciferol [Vitamin D3] 1,000 unit PO DAILY 07/09/16 01/03/20 History Citalopram Hydrobromide 20 mg PO DAILY 07/09/16 01/03/20 History [Citalopram HBr] Enalapril [Vasotec] 10 mg PO BID 07/09/16 01/03/20 History Omeprazole 40 mg PO DAILY 07/09/16 07/06/24 History Terazosin [Hytrin] 5 mg PO BID 07/09/16 07/06/24 History amLODIPine [Norvasc] 5 mg PO DAILY 07/09/16 07/06/24 History atenoloL 100 mg PO DAILY 07/09/16 07/06/24 History Ibuprofen [Motrin Ib] 800 mg PO Q4-6H PRN 10/17/18 01/03/20 History Cyanocobalamin (Vitamin B-12) 1,000 mcg PO DAILY 07/06/24 07/06/24 History [Vitamin B-12] Levothyroxine Sodium [Synthroid] 200 mcg PO DAILY 07/06/24 07/06/24 History Metoprolol Tartrate [Lopressor] 25 mg PO BID 07/06/24 07/06/24 History Mv-Min/Folic/K1/Lycopen/Lutein 1 tab PO DAILY 07/06/24 07/06/24 History [Centrum Silver Men Tablet] Vit C/E/Zn/Coppr/Lutein/Zeaxan 1 each PO BID 07/06/24 07/06/24 History [Preservision Areds 2 Softgel] fentaNYL 100MCG/HR PATCH 100 mcg TRANSDERM Q72H 07/06/24 07/06/24 History [Duragesic 100MCG/HR] oxyCODONE HCL [oxyCODONE HCL (IR)] 15 mg PO PRN 07/06/24 History Allergies Allergy/AdvReac Type Severity Reaction Status Date / Time No Known Allergies Allergy Verified 07/06/24 18:00 Physical Exam Vitals: Vital Signs Temp Pulse Resp BP Pulse Ox 07/06/24 23:00 89 13 133/63 97 07/06/24 22:00 80 15 144/78 96 07/06/24 21:00 72 19 116/90 96 07/06/24 19:43 91 22 148/87 85 L 07/06/24 17:58 100.2 F H 90 20 148/79 94 L Intake and Output 07/06/24 07/06/24 07/07/24 14:59 22:59 06:59 Other: Weight 108.862 kg Results CBC & Chem 7: 07/06/24 19:18 07/06/24 19:18 Labs: Abnormal Lab Results - Last 24 Hours (Table) 07/06/24 07/06/24 Range/Units 19:18 19:18 RBC 3.59 L (4.30-5.90) m/uL Hgb 10.8 L (13.0-17.5) gm/dL Hct 32.4 L (39.0-53.0) % Lymphocytes # 0.7 L (1.0-4.8) k/uL Sodium 129 L (137-145) mmol/L Chloride 92 L (98-107) mmol/L Creatinine 0.62 L (0.66-1.25) mg/dL Albumin 3.3 L (3.5-5.0) g/dL Thrombosis Risk Factor Assmnt - Choose All That Apply Each Factor Represents 1 point: Age 41-60 years, Medical pt on bed rest, Obesity (BMI >25) Each Risk Factor Represents 2 Points: Malignancy Thrombosis Risk Factor Assessment Total Risk Factor Score: 5 Thrombosis Risk Factor Assessment Level: High Risk
[2024-07-07] MEDS: PANTOPRAZOLE 40 MG TABLET PO SCH (05:41)
[2024-07-07] MEDS: LEVOTHYROXINE 100 MCG TAB PO SCH (05:41)
[2024-07-07 06:46] LABS: Appearance,Urine Clear (Clear); Bilirubin,Urine Negative (Negative); Blood,Urine Moderate (Negative); Calcium Oxalate Crystals,Urine Many /hpf; Color,Urine Yellow; Glucose,Urine (UA) Negative (Negative); Hyaline Casts,Urine 1 /lpf (0-2); Ketones,Urine Negative (Negative); Leukocyte Esterase,Urine Negative (Negative); Mucus,Urine Moderate /hpf; Nitrite,Urine Negative (Negative); PH, Urine 5.5 (5.0-8.0); Protein,Urine Trace (Negative); RBC,Urine 1 /hpf (0-5); Specific Gravity,Urine 1.023 (1.001-1.035); Squamous Epithelial Cell,Urine <1 /hpf (0-4); WBC,Urine 3 /hpf (0-5)
--- NOTE | 2024-07-07 07:24 | CDI ---
Documentation Clarification Form Date: 07/07/2024 07:04:50 AM From: Lydia Kerr RN CCDS Phone: [phone] Admit Date: 07/06/2024 08:50:00 PM Patient Name: Abelardo Soto Visit Number: [id number] Discharge Date: ATTENTION: The Clinical Documentation Specialists (CDI) and [facility] Coding Staff appreciate your assistance in clarifying documentation. Please respond to the clarification below the line at the bottom and electronically sign. The CDI & [facility] Coding staff will review the response and follow-up if needed. Please note: Queries are made part of the Legal Health Record. If you have any questions, please contact the author of this message via ITS. Dr. Ngo Your patient has [insert documentation of symptoms or findings, with date, location]. Based on this information and the findings below, is there an additional diagnosis that is clinically appropriate for this patient? History/Risk Factors: 59 year old male presents to the ED with severe pain 07/13 with arm and leg weakness, shortness of breath, coughing and fatigue. Medical History: Lung cancer with metastasis to bone and liver on radiation therapy, HTN, Anxiety and depression. Tobacco use: Former smoker Clinical Indicators: Vital signs: 07/06 19:43 B/P 148/87 HR 91 RR 22 SpO2 85% ra 07/06 21:00 B/P 116/90 HR 72 RR 19 SpO2 96% 2L nc Lung/Breathing assessment:07/06, HP: CTA bilateral CXR, 07/06: Right lower lobe airspace consolidation suspicious for pneumonia. Treatment: 07/07 Zithromax po daily x 2 doses, 07/07 Ceftriaxone IVPB Q24H 07/07 O2 2L nc Is there an additional diagnosis that is clinically appropriate for this patient? [ ] Acute Hypoxic Respiratory Failure [ x ] No additional diagnosis/not clinically significant [ ] Other Diagnosis, please specify [ ] Unable to determine (Template Last Revised: October 2023) MTDD
[2024-07-07 07:51] LABS: African American GFR (CKD) >90 (>60 ml/min/1.73 sqM); Anion Gap 5 mmol/L; Blood Urea Nitrogen 12 mg/dL (9-20); Calcium 8.5 mg/dL (8.4-10.2); Carbon Dioxide 29 mmol/L (22-30); Chloride 96 mmol/L (98-107); Glucose 96 mg/dL (74-99); Non-African American GFR(CKD) >90 (>60 ml/min/1.73 sqM); Sodium 130 mmol/L (137-145)
[2024-07-07 07:55] LABS: HCT 31.6 % (39.0-53.0); HGB 10.5 gm/dL (13.0-17.5); MCH 29.3 pg (25.0-35.0); MCHC 33.3 g/dL (31.0-37.0); Mean Platelet Volume 8.6; RDW 13.8 % (11.5-15.5); WBC 7.9 k/uL (3.8-10.6)
[2024-07-07 08:00] LABS: Potassium 4.6 mmol/L (3.5-5.1)
[2024-07-07 08:14] LABS: Platelet Count 223 k/uL (150-450)
--- NOTE | 2024-07-07 08:49 | XR ---
EXAMINATION TYPE: XR chest 1V portable DATE OF EXAM: 07/07/2024 HISTORY: Shortness of breath. COMPARISON: 07/06/2024 TECHNIQUE: Single view of the chest is submitted. FINDINGS: Demonstrated are scattered senescent parenchymal change. Right lower lung zone infiltrate persists essentially unchanged. The remainder of the lungs are clear with the exception of mild linear atelectasis left lung base. The heart is stable. Hilar and mediastinal structures are within normal limits. Degenerative changes are seen of the dorsal spine. IMPRESSION: 1. Stable chest [facility], , 07/07/2024 8:47 AM
[2024-07-07] MEDS ORDERED: atenoloL 50 MG TAB PO SCH (09:00)
[2024-07-07] MEDS: DOXAZOSIN 4 MG TAB PO SCH (09:05)
[2024-07-07] MEDS: METOPROLOL TARTRATE 25 MG TAB PO SCH (09:05)
[2024-07-07] MEDS: ENOXAPARIN 40 MG/0.4 ML SYRINGE SQ SCH (09:05)
[2024-07-07] MEDS: amLODIPine 5 MG TAB PO SCH (09:05)
[2024-07-07] MEDS: CITALOPRAM HYDROBROMIDE 20 MG TAB PO SCH (09:05)
[2024-07-07] MEDS: AZITHROMYCIN 500 MG TAB PO SCH (09:05)
[2024-07-07] MEDS: lisinopriL 20 MG TAB PO SCH (09:06)
--- NOTE | 2024-07-07 13:42 | P.CNPUL ---
History of Present Illness Consult date: 07/07/24 Requesting physician: Bernie Coleman Reason for consult: abnormal CXR/CT Chief complaint: Uncontrolled pain History of present illness: This is a very pleasant 59-year-old male patient with a known history of thyroid cancer status post thyroidectomy, hypertension, gastroesophageal reflux disease. He had a low-dose CT scan for lung cancer screening on March 23, 2024 that did reveal a 4.1 x 3.2 cm macrolobulated mass in the right infrahilar region suspicious for neoplasm. A PET scan from June 16, 2024 showed increased size now measuring 7.6 with marked FDG avid right upper lung mass consistent with primary lung cancer. There is metastatic disease with osseous metastasis, mediastinal and right hilar adenopathy, right supraclavicular metastatic lymph node and left adrenal gland metastatic nodule. He had been initiated on radiation treatments but could not tolerate laying flat on the table due to pain. He had been on fentanyl patch and oral pain medications but presented here to the emergency room last evening with uncontrolled pain. His pain is all over but more significant in his right chest area. X-ray reveals persistent right lower lobe infiltrate. Some mild linear atelectasis of the lung base. White count 7.9. Hemoglobin 10.5. Platelets 223. Sodium 130. Potassium 4.6. Bicarb 29. BUN 12. Creatinine 0.54. Glucose 96. Viral screen negative. He is seen today in consultation in the emergency department. He is currently resting on a bed. He is awake and alert. He is in obvious physical pain. He has difficulty sitting up or even turning himself in bed. He does have a fentanyl patch in place and orders for Dilaudid as needed. He has been initiated on ceftriaxone and azithromycin. Lovenox for DVT prophylaxis. Review of Systems REVIEW OF SYSTEMS: CONSTITUTIONAL: Denies any recent significant weight loss or weight gain. EYES: Denies change in vision. EARS, NOSE, MOUTH, THROAT: Denies headaches, denies sore throat. CARDIOVASCULAR: Denies chest pain, palpitations or syncopal episodes. RESPIRATORY: Denies shortness of breath, cough, congestion or hemoptysis. GASTROINTESTINAL: Denies change in appetite, denies abdominal pain GENITOURINARY: Denies hematuria, denies infections. MUSKULOSKELETAL: Positive for significant skeletal pain. INTEGUMENTARY: Denies rash, denies eczema. NEUROLOGICAL: Denies recent memory loss, no recent seizure activity. PSYCHIATRIC: Denies anxiety, denies depression. HEMATOLOGIC/LYMPHATIC: Denies anemia, denies enlarged lymph nodes. Past Medical History Past Medical History: GERD/Reflux, Hypertension, Osteoarthritis (OA) Additional Past Medical History / Comment(s): stage 4 CA with mets History of Any Multi-Drug Resistant Organisms: None Reported Past Surgical History: Appendectomy Additional Past Surgical History / Comment(s): EYE SURGERY Past Anesthesia/Blood Transfusion Reactions: No Reported Reaction Past Psychological History: Anxiety, Depression Smoking Status: Never smoker Past Alcohol Use History: Occasional Past Drug Use History: None Reported - Past Family History Mother Family Medical History: Cancer Additional Family Medical History / Comment(s): COLON CANCER Brother(s) Family Medical History: Cancer Additional Family Medical History / Comment(s): ESOPHAGEAL CANCER Medications and Allergies Home Medications Medication Instructions Recorded Confirmed Type Omeprazole 40 mg PO DAILY 07/09/16 07/07/24 History Terazosin [Hytrin] 5 mg PO BID 07/09/16 07/07/24 History Levothyroxine Sodium [Synthroid] 200 mcg PO DAILY 07/06/24 07/07/24 History Metoprolol Tartrate [Lopressor] 25 mg PO BID 07/06/24 07/07/24 History Mv-Min/Folic/K1/Lycopen/Lutein 1 tab PO DAILY 07/06/24 07/07/24 History [Centrum Silver Men Tablet] Vit C/E/Zn/Coppr/Lutein/Zeaxan 1 cap PO BID 07/06/24 07/07/24 History [Preservision Areds 2 Softgel] fentaNYL 100MCG/HR PATCH 1 patch TRANSDERM Q72H 07/06/24 07/07/24 History [Duragesic 100MCG/HR] Cholecalciferol (Vitamin D3) 50 mcg PO DAILY 07/07/24 07/07/24 History [Vitamin D3 (50 Mcg = 2000 Iu) Chew Tab] FLUoxetine HCL [PROzac] 10 mg PO DAILY 07/07/24 07/07/24 History Morphine Sulfate Ir [MSIR] 15 - 30 mg PO Q4H 07/07/24 07/07/24 History Naloxone HCl [Narcan] 4 mg NASAL DIRECTED PRN 07/07/24 07/07/24 History Allergies Allergy/AdvReac Type Severity Reaction Status Date / Time No Known Allergies Allergy Verified 07/07/24 08:20 Physical Exam Vitals: Vital Signs Temp Pulse Pulse Resp BP BP Pulse Ox 07/07/24 11:28 64 17 116/72 97 07/07/24 10:20 98.5 F 75 20 130/70 95 07/07/24 09:03 90 127/86 07/07/24 08:39 97 07/07/24 07:46 98.2 F 64 17 135/82 95 07/07/24 01:39 89 18 121/70 94 L 07/06/24 23:00 89 13 133/63 97 07/06/24 22:00 80 15 144/78 96 07/06/24 21:00 72 19 116/90 96 07/06/24 19:43 91 22 148/87 85 L 07/06/24 17:58 100.2 F H 90 20 148/79 94 L Intake and Output 07/06/24 07/07/24 07/07/24 22:59 06:59 14:59 Other: # Voids 1 Weight 108.862 kg 108.862 kg GENERAL EXAM: Alert, pleasant 59-year-old male, in obvious discomfort, on 2 L nasal cannula. HEAD: Normocephalic. EYES: Normal reaction of pupils, equal size. NOSE: Clear with pink turbinates. THROAT: No erythema or exudates. NECK: No masses, no JVD. CHEST: No chest wall deformity. LUNGS: Equal air entry with rhonchi over the right lung base. CVS: S1 and S2 normal with no audible murmur, regular rhythm. ABDOMEN: No hepatosplenomegaly, normal bowel sounds, no guarding or rigidity. SPINE: No scoliosis or deformity SKIN: No rashes CENTRAL NERVOUS SYSTEM: No focal deficits, tone is normal in all 4 extremities. EXTREMITIES: There is no peripheral edema. No clubbing, no cyanosis. Peripheral pulses are intact. Results - Laboratory Findings CBC and BMP: 07/07/24 07:14 07/07/24 07:14 PT/INR, D-dimer PT 11.4 sec (10.0-12.5) 07/06/24 19:18 INR 1.1 (<1.2) 07/06/24 19:18 Abnormal lab findings: Abnormal Labs 1007/06/24 07/07/24 19:18 19:18 05:34 RBC 3.59 L Hgb 10.8 L Hct 32.4 L Lymphocytes # 0.7 L Sodium 129 L Chloride 92 L Creatinine 0.62 L Albumin 3.3 L Urine Protein Trace H Urine Blood Moderate H Calcium Oxalate Crystal Many H Urine Mucus Moderate H 07/07/24 07/07/24 07:14 07:14 RBC 3.60 L Hgb 10.5 L Hct 31.6 L Lymphocytes # Sodium 130 L Chloride 96 L Creatinine 0.54 L Albumin Urine Protein Urine Blood Calcium Oxalate Crystal Urine Mucus - Diagnostic Findings Chest x-ray: image reviewed Assessment and Plan Assessment: Intractable pain secondary to metastatic lung cancer with osseous involvement. PET scan from 06/16/2024 reveals a right posterior upper lung mass extending toward the pulmonary rashida measuring 7.6 x 7.4 cm. Multiple lymph node metastase s. Multiple lytic lesions throughout the osseous structures including the distal right clavicle, right acromion, right aspect of C7 vertebrae right aspect of T1 vertebrae left posterior second rib, medial left scapula, medial left left clavicle and multiple vertebral bodies, right lateral ninth rib, bilateral iliac bones, right superior pubic ramus, and the sacrum. History of thyroid cancer, status post thyroidectomy in 2019 Hypertension Gastroesophageal reflux disease History of anxiety/depression Plan: The patient was seen and evaluated Chest x-ray, labs and medications reviewed Recent PET scan results reviewed Assure adequate pain control Medical and radiation oncology consults CODE STATUS discussed with the patient He will be speaking with his later today We will continue to follow and make further recommendations based on his clinical status I have personally seen and examined the patient, performed the documentation and the assessment and plan as written. Number of minutes spent on the visit: 20.
--- NOTE | 2024-07-07 15:48 | P.PN ---
Subjective Progress Note Date: 07/07/24 Patient continues to complain of pain in between his doses of IV Dilaudid. Notably, his morphine IR from home was not resumed, will do so today. Unable to rule out postobstructive pneumonia, continue antibiotics. Gen: In NAD, non-toxic HEENT: normocephalic, atraumatic, hearing acuity is intant, mucous membranes moist CVS: perfusing all extremities well, no pitting edema, Respiratory: symmetric chest expansion, no accessory muscle use, GI: soft, NTTP, ND, : no suprapubic tenderness, no CVA tenderness MSK/Derm: no rashes, cyanosis Neuro: CN II-XII intact, no motor weakness, Psych: cooperative, euthymic mood, judgment and insight is intact Hospital course: Patient is a 59-year-old male with PMH of metastatic lung cancer (w/ mets to bone and liver) currently undergoing radiation therapy presented to the ED with severe pain. In the ED he was treated with Dilaudid for pain management and oncology consulted for intractable cancer pain management and cancer treatment. Vitals: T 100.2 F, P 90 bpm, RR 20, BP 148/79, O2 sat 96% on 2 L nasal cannula Chest x-ray: Right lower lobe airspace consolidation suspicious for pneumonia Labs: WBC 8.2, hemoglobin 10.8, sodium 129, chloride 92, lactic acid 1.5, albumin 3.3, troponin < 0.012 Respiratory panel: Not detected Assessment/Plan: Patient is a 59-year-old male with metastatic lung cancer presented to the ED with severe pain and admission accepted for intractable cancer pain management and cancer treatment. #. Metastatic lung cancer with intractable generalized pain C/W Dilaudid 2 mg IV every 3 hours as needed for pain management - C/w home fentanyl doses -Add morphine 15 mg every 4 hours Oncology consulted #. Hypoxia secondary to possible community acquired pneumonia secondary to postobstructive process Chest x-ray shows right lower lobe airspace consolidation suspicious for pneumonia, procalcitonin pending to confirm, will consider de-escalating antibiotics if this is negative - If procalcitonin is elevated, will consider MRSA nares and escalation to vancomycin C/W azithromycin 5 mg p.o. daily, ceftriaxone 2 g IVPB every 24 hours - Blood culture and sputum culture ordered Respiratory panel negative Pulmonology consulted #. Normocytic anemia (no recent baseline available for comparison) Low hemoglobin 10.8, normal MCV 90.4 Monitor CBC #. Hypochloremic Hyponatremia Low sodium 129 Monitor BMP #. Hypertension C/W amlodipine 5 mg p.o. daily, atenolol 100 mg p.o. daily, enalapril 10 mg p.o. daily, metoprolol 20 mg p.o. twice daily #. History of anxiety/depression C/W citalopram 20 mg p.o. daily #. History of thyroidectomy C/W levothyroxine 200 mcg p.o. daily #. History of GERD C/W omeprazole 40 mg p.o. daily F: 0.9 normal saline 20 mL/h E: Replete as required N: Regular diet A: Bedrest DVT prophylaxis: Lovenox 40 mg SQ daily The patient is admitted with an anticipated more than 2 midnight stay for evaluation of severe pain CODE STATUS: Full code Discussed with: Patient Anticipated discharge place: Home Objective - Vital Signs Vital signs: Vital Signs Temp 98.5 F 07/07/24 10:20 Pulse 66 07/07/24 15:09 Resp 17 07/07/24 15:09 BP 106/58 07/07/24 15:09 Pulse Ox 96 07/07/24 15:09 FiO2 Intake & Output 07/06/24 07/07/24 07/07/24 18:59 06:59 18:59 Weight 108.862 kg 108.862 kg Other: # Voids 1 - Labs CBC & Chem 7: 07/07/24 07:14 07/07/24 07:14 Labs: Abnormal Lab Results - Last 24 Hours (Table) 07/06/24 07/06/24 07/07/24 Range/Units 19:18 19:18 05:34 RBC 3.59 L (4.30-5.90) m/uL Hgb 10.8 L (13.0-17.5) gm/dL Hct 32.4 L (39.0-53.0) % Lymphocytes # 0.7 L (1.0-4.8) k/uL Sodium 129 L (137-145) mmol/L Chloride 92 L (98-107) mmol/L Creatinine 0.62 L (0.66-1.25) mg/dL Albumin 3.3 L (3.5-5.0) g/dL Urine Protein Trace H (Negative) Urine Blood Moderate H (Negative) Calcium Oxalate Crystal Many H (None) /hpf Urine Mucus Moderate H (None) /hpf 07/07/24 07/07/24 Range/Units 07:14 07:14 RBC 3.60 L (4.30-5.90) m/uL Hgb 10.5 L (13.0-17.5) gm/dL Hct 31.6 L (39.0-53.0) % Lymphocytes # (1.0-4.8) k/uL Sodium 130 L (137-145) mmol/L Chloride 96 L (98-107) mmol/L Creatinine 0.54 L (0.66-1.25) mg/dL Albumin (3.5-5.0) g/dL Urine Protein (Negative) Urine Blood (Negative) Calcium Oxalate Crystal (None) /hpf Urine Mucus (None) /hpf
[2024-07-07] MEDS: KETOROLAC 15 MG/ML 1 ML VIAL IVP PRN (15:58)
[2024-07-07] MEDS: DEXAMETHASONE SOD PHOSPHATE 10 MG/ML 1 ML VIAL IVP SCH (17:20)
[2024-07-07] MEDS: MORPHINE SULFATE IR 15 MG TABLET PO SCH (17:22)
--- NOTE | 2024-07-07 19:32 | P.CONS ---
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 Patient had a low-dose CT scan of the chest ordered by his PCP, on 03/23/24. The CT scan revealed a 4.1 x 3.2 cm macrolobulated mass in the right infrahilar region as well as an enlarged 2.7 cm right hilar lymph node. He therefore proceeded to a PET scan, done on 03/30/24, that showed uptake in the right lung mass, in another 2.1 cm mass medial to it, most likely be hilar node, as well as in the 8 mm lymph node in the right supraclavicular region. The SUV values ranged from 5.4 in the right hilar nodule, to 13.7 and the main mass. He also has a history of thyroid cancer, treated with total thyroidectomy, and radioiodine, in 2019. He states that he was on follow-up for a couple of years, and then discharged from the same. His surgery was in [facility], and the radioiodine treatment at the [facility]. He had had an ultrasound of the left supraclavicular area, because of feeling a possible mass in 11/27, which had shown benign-appearing 1.6 cm lesion with lipoma or a mesenchymal tumor in the differential. He had brain MRI that was neg for mets, biospy of rt lung mass and rt supraclavicular LN with Dr. Tae Cid 04/26, lung mass was positive for adenocarcinoma. Supraclavicular node biopsy was subsequently confirmed to be metastasis from papillary thyroid cancer. The patient's case was discussed with pathology who confirmed the above. It was also discussed with pulmonary medicine, who felt that medically he would be a candidate for resection. The patient was therefore referred to cardiothoracic surgery, Dr. Resendez, [facility]. He also felt that the patient was a surgical candidate, and recommended doing an EUS for additional mediastinal staging. The patient had been complaining of p ersistent chest pain, without a definite radiologic correlatation. Therefore at his visit in 05/27 a PET scan was ordered. Prior to this being performed, he was admitted to the hospital because of progressive back pain. CT imaging unfortunately showed evidence of new metastatic disease at multiple levels of the spine. He had a bone biopsy on 06/08/24. The specimen was sent to the [facility], and ultimately came back as adenocarcinoma. He had repeat brain MRI on 06/23/24 which was negative for mets. Due to progressing and intractable pain, pt was started on RT of spine and shoulder. He completed RT of spine and 2/5 fractions to shoulder but had progressing chest pain and low back pain and was unable to tolerate laying flat for RT. He was also noted with a temperature of 100.5, and was directed to go to the ER for admission for pain control and to start inpt chemo. Upon admission CXR showed possible pneumonia in RLL. He has been started on IV abx. At today's visit, pt reports pain is persisting and has not achieved adequate pain control. Currently on fentanyl 100mcg patch and dilaudid 2mg q3hrs prn. He reports bilateral lower extremity weakness, but denies loss of bowel and bladder control and saddle anesthesia Review of Systems 10 point ROS is negative except as stated in the HPI Past Medical History Past Medical History: GERD/Reflux, Hypertension, Osteoarthritis (OA) Additional Past Medical History / Comment(s): stage 4 CA with mets History of Any Multi-Drug Resistant Organisms: None Reported Past Surgical History: Appendectomy Additional Past Surgical History / Comment(s): EYE SURGERY Past Anesthesia/Blood Transfusion Reactions: No Reported Reaction Past Psychological History: Anxiety, Depression Smoking Status: Never smoker Past Alcohol Use History: Occasional Past Drug Use History: None Reported - Past Family History Mother Family Medical History: Cancer Additional Family Medical History / Comment(s): COLON CANCER Brother(s) Family Medical History: Cancer Additional Family Medical History / Comment(s): ESOPHAGEAL CANCER Medications and Allergies Home Medications Medication Instructions Recorded Confirmed Type Omeprazole 40 mg PO DAILY 07/09/16 07/07/24 History Terazosin [Hytrin] 5 mg PO BID 07/09/16 07/07/24 History Levothyroxine Sodium [Synthroid] 200 mcg PO DAILY 07/06/24 07/07/24 History Metoprolol Tartrate [Lopressor] 25 mg PO BID 07/06/24 07/07/24 History Mv-Min/Folic/K1/Lycopen/Lutein 1 tab PO DAILY 07/06/24 07/07/24 History [Centrum Silver Men Tablet] Vit C/E/Zn/Coppr/Lutein/Zeaxan 1 cap PO BID 07/06/24 07/07/24 History [Preservision Areds 2 Softgel] fentaNYL 100MCG/HR PATCH 1 patch TRANSDERM Q72H 07/06/24 07/07/24 History [Duragesic 100MCG/HR] Cholecalciferol (Vitamin D3) 50 mcg PO DAILY 07/07/24 07/07/24 History [Vitamin D3 (50 Mcg = 2000 Iu) Chew Tab] FLUoxetine HCL [PROzac] 10 mg PO DAILY 07/07/24 07/07/24 History Morphine Sulfate Ir [MSIR] 15 - 30 mg PO Q4H 07/07/24 07/07/24 History Naloxone HCl [Narcan] 4 mg NASAL DIRECTED PRN 07/07/24 07/07/24 History Allergies Allergy/AdvReac Type Severity Reaction Status Date / Time No Known Allergies Allergy Verified 07/07/24 08:20 Physical Exam Vitals: Vital Signs Temp Pulse Pulse Resp BP BP Pulse Ox 07/07/24 11:28 64 17 116/72 97 07/07/24 10:20 98.5 F 75 20 130/70 95 07/07/24 09:03 90 127/86 07/07/24 08:39 97 07/07/24 07:46 98.2 F 64 17 135/82 95 07/07/24 01:39 89 18 121/70 94 L 07/06/24 23:00 89 13 133/63 97 07/06/24 22:00 80 15 144/78 96 07/06/24 21:00 72 19 116/90 96 07/06/24 19:43 91 22 148/87 85 L 07/06/24 17:58 100.2 F H 90 20 148/79 94 L Intake and Output 07/06/24 07/07/24 07/07/24 22:59 06:59 14:59 Other: # Voids 1 Weight 108.862 kg 108.862 kg - Constitutional General appearance: average body habitus, no acute distress - EENT Eyes: anicteric sclerae, EOMI - Respiratory Respiratory: bilateral: CTA - Cardiovascular Rhythm: regular Heart sounds: normal: S1, S2 - Gastrointestinal General gastrointestinal: soft, no tenderness - Integumentary Integumentary: no cyanotic, jaundiced - Neurologic BLE sensation intact, strength equal, 5/5 - Musculoskeletal Musculoskeletal: strength equal bilaterally - Psychiatric Psychiatric: A&O x's 3 Results CBC & Chem 7: 07/07/24 07:14 07/07/24 07:14 Labs: Abnormal Lab Results - Last 24 Hours (Table) 07/06/24 07/06/24 07/07/24 Range/Units 19:18 19:18 05:34 RBC 3.59 L (4.30-5.90) m/uL Hgb 10.8 L (13.0-17.5) gm/dL Hct 32.4 L (39.0-53.0) % Lymphocytes # 0.7 L (1.0-4.8) k/uL Sodium 129 L (137-145) mmol/L Chloride 92 L (98-107) mmol/L Creatinine 0.62 L (0.66-1.25) mg/dL Albumin 3.3 L (3.5-5.0) g/dL Urine Protein Trace H (Negative) Urine Blood Moderate H (Negative) Calcium Oxalate Crystal Many H (None) /hpf Urine Mucus Moderate H (None) /hpf 07/07/24 07/07/24 Range/Units 07:14 07:14 RBC 3.60 L (4.30-5.90) m/uL Hgb 10.5 L (13.0-17.5) gm/dL Hct 31.6 L (39.0-53.0) % Lymphocytes # (1.0-4.8) k/uL Sodium 130 L (137-145) mmol/L Chloride 96 L (98-107) mmol/L Creatinine 0.54 L (0.66-1.25) mg/dL Albumin (3.5-5.0) g/dL Urine Protein (Negative) Urine Blood (Negative) Calcium Oxalate Crystal (None) /hpf Urine Mucus (None) /hpf Chest x-ray: report reviewed Assessment and Plan (1) Adenocarcinoma of lung Current Visit: Yes Status: Acute Priority: High Code(s): C34.90 - MALIGNANT NEOPLASM OF UNSP PART OF UNSP BRONCHUS OR LUNG SNOMED Code(s): 929854086 (2) Cancer associated pain Current Visit: Yes Status: Acute Priority: High Code(s): G89.3 - NEOPLASM RELATED PAIN (ACUTE) (CHRONIC) SNOMED Code(s): 81443304948400 (3) Pneumonia Current Visit: Yes Status: Acute Priority: High Code(s): J18.9 - PNEUMONIA, UNSPECIFIED ORGANISM SNOMED Code(s): 414605028 Plan: Intractable pain r/t malignancy: Presented with progressing low back and chest pain. Was taking morphine IR 30mg and fentanyl 100mcg patch at home without pain control -Continues fentanyl 100mcg patch. 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 He completed RT of spine and 2/5 fractions to shoulder but had progressing chest pain and low back pain and was unable to tolerate laying flat for RT -Patient was admitted to begin inpt chemo with carboplatin and Alimta. Will add keytruda to subsequent cycles in outpt setting. However, due to suspected pneumonia/fever, will hold chemo until early next week pending course of hospitalization and treatment of pneumonia Patient and family updated on POC and are agreeable Doctor attests: I performed a history and physical examination of this patient, developed impression and plan of care. Discussed with dictator. I agree with dictators note, documented as a scribe
[2024-07-08] MEDS: DEXAMETHASONE SOD PHOSPHATE 10 MG/ML 1 ML VIAL IVP SCH (05:30)
--- NOTE | 2024-07-08 12:14 | P.PN ---
Subjective Progress Note Date: 07/08/24 This is a very pleasant 59-year-old male patient with a known history of thyroid cancer status post thyroidectomy, hypertension, gastroesophageal reflux disease. He had a low-dose CT scan for lung cancer screening on March 23, 2024 that did reveal a 4.1 x 3.2 cm macrolobulated mass in the right infrahilar region suspicious for neoplasm. A PET scan from June 16, 2024 showed increased size now measuring 7.6 with marked FDG avid right upper lung mass consistent with primary lung cancer. There is metastatic disease with osseous metastasis, mediastinal and right hilar adenopathy, right supraclavicular metastatic lymph node and left adrenal gland metastatic nodule. He had been initiated on radia tion treatments but could not tolerate laying flat on the table due to pain. He had been on fentanyl patch and oral pain medications but presented here to the emergency room last evening with uncontrolled pain. His pain is all over but more significant in his right chest area. X-ray reveals persistent right lower lobe infiltrate. Some mild linear atelectasis of the lung base. White count 7.9. Hemoglobin 10.5. Platelets 223. Sodium 130. Potassium 4.6. Bicarb 29. BUN 12. Creatinine 0.54. Glucose 96. Viral screen negative. He is seen today in consultation in the emergency department. He is currently resting on a bed. He is awake and alert. He is in obvious physical pain. He has difficulty sitting up or even turning himself in bed. He does have a fentanyl patch in place and orders for Dilaudid as needed. He has been initiated on ceftriaxone and azithromycin. Lovenox for DVT prophylaxis. The patient is seen today July 08, 2024 in follow-up on the regular medical floor. He is currently resting comfortably in bed. No acute distress. Maintaining good O2 saturation in the 90s on 2 L/min per nasal cannula. He is afebrile. Hemodynamically stable. Pain is better controlled today compared to yesterday. Procalcitonin 0.09. Antibiotics discontinued. Remains on Decadron. Remains on Lovenox for DVT prophylaxis. Objective - Vital Signs Vital signs: Vital Signs Temp 97.8 F 07/08/24 07:18 Pulse 67 07/08/24 09:41 Resp 16 07/08/24 07:18 BP 126/73 07/08/24 09:41 Pulse Ox 96 07/08/24 07:18 FiO2 Intake & Output 07/07/24 07/08/24 07/08/24 18:59 06:59 18:59 Intake Total 540 Output Total 1225 550 Balance -685 -550 Intake: Oral 540 Output: Urine 1225 550 Other: Voiding Method Toilet Toilet Urinal Urinal # Voids 1 - Exam GENERAL EXAM: Alert, 59-year-old male, on 2 L nasal cannula, resting in bed, currently comfortable in no apparent distress. HEAD: Normocephalic. EYES: Normal reaction of pupils, equal size. NOSE: Clear with pink turbinates. THROAT: No erythema or exudates. NECK: No masses, no JVD. CHEST: No chest wall deformity. LUNGS: Equal air entry with no crackles, wheeze, rhonchi or dullness. CVS: S1 and S2 normal with no audible murmur, regular rhythm. ABDOMEN: No hepatosplenomegaly, normal bowel sounds, no guarding or rigidity. SPINE: No scoliosis or deformity SKIN: No rashes CENTRAL NERVOUS SYSTEM: No focal deficits, tone is normal in all 4 extremities. EXTREMITIES: There is no peripheral edema. No clubbing, no cyanosis. Peripheral pulses are intact. - Labs CBC & Chem 7: 07/07/24 07:14 07/07/24 07:14 Labs: Microbiology - Last 24 Hours (Table) 07/06/24 19:18 Blood Culture - Preliminary Blood Assessment and Plan Assessment: Intractable pain secondary to metastatic lung cancer with osseous involvement. PET scan from 06/16/2024 reveals a right posterior upper lung mass extending toward the pulmonary rashida measuring 7.6 x 7.4 cm. Multiple lymph node metastases. Multiple lytic lesions throughout the osseous structures including the distal right clavicle, right acromion, right aspect of C7 vertebrae right aspect of T1 vertebrae left posterior second rib, medial left scapula, medial left left clavicle and multiple vertebral bodies, right lateral ninth rib, bilateral iliac bones, right superior pubic ramus, and the sacrum. Received 2 out of 5 planned radiation treatments however was unable to tolerate lying flat on the table. Plan is to initiate carbo/Alimta this admission and eventual addition of Keytruda History of thyroid cancer, status post thyroidectomy in 2019 Hypertension Gastroesophageal reflux disease History of anxiety/depression Plan: The patient was seen and evaluated Medications reviewed Assure adequate pain control Procalcitonin negative Antibiotics discontinued No fever, no leukocytosis, no pneumonia Plan is to be initiated on carbo/Alimta and eventual Keytruda I have personally seen and examined the patient, performed the documentation and the assessment and plan as written. Number of minutes spent on the visit: 10.
--- NOTE | 2024-07-08 15:30 | P.PN ---
Subjective Progress Note Date: 07/08/24 Principal diagnosis: NSCLC -Afebrile, no acute events overnight -Pain significantly improved since starting Toradol and has not needed Dilaudid since yesterday afternoon Objective - Vital Signs Vital signs: Vital Signs Temp 97.9 F 07/08/24 13:31 Pulse 64 07/08/24 13:31 Resp 19 07/08/24 13:31 BP 115/67 07/08/24 13:31 Pulse Ox 97 07/08/24 13:31 FiO2 Intake & Output 07/07/24 07/08/24 07/08/24 18:59 06:59 18:59 Intake Total 540 Output Total 1225 550 Balance -685 -550 Intake: Oral 540 Output: Urine 1225 550 Other: Voiding Method Toilet Toilet Urinal Urinal # Voids 1 - Constitutional General appearance: Present: cooperative, no acute distress - EENT Eyes: Present: EOMI - Respiratory Details: Nonlabored breathing - Cardiovascular Details: Warm and well-perfused - Gastrointestinal General gastrointestinal: Present: soft. Absent: distended - Integumentary Integumentary: Absent: rash - Neurologic Neurologic: Present: CNII-XII intact. Absent: focal deficits - Psychiatric Psychiatric: Present: A&O x's 3, appropriate affect - Labs CBC & Chem 7: 07/07/24 07:14 07/07/24 07:14 Labs: Microbiology - Last 24 Hours (Table) 07/07/24 15:22 Gram Stain - Preliminary Sputum Sputum Culture - Preliminary 07/06/24 19:18 Blood Culture - Preliminary Blood Assessment and Plan (1) NSCLC metastatic to bone Current Visit: Yes Status: Acute Code(s): C34.90 - MALIGNANT NEOPLASM OF UNSP PART OF UNSP BRONCHUS OR LUNG; C79.51 - SECONDARY MALIGNANT NEOPLASM OF BONE SNOMED Code(s): 771210576 (2) Cancer associated pain Current Visit: Yes Status: Acute Priority: High Code(s): G89.3 - NEOPLASM RELATED PAIN (ACUTE) (CHRONIC) SNOMED Code(s): 11315914769313 (3) Pneumonia Current Visit: Yes Status: Acute Priority: High Code(s): J18.9 - PNEUMONIA, UNSPECIFIED ORGANISM SNOMED Code(s): 420247015 Plan: Intractable pain r/t malignancy: Presented with progressing low back and chest pain. Was taking morphine IR 30mg and fentanyl 100mcg patch at home without pain control -Toradol 15 mg IV every 6 hours as needed was added in addition to Decadron 8 mg twice daily IV with significant improvement -Scheduled morphine immediate release 15 mg every 4 hours was also added -Continue Toradol 15 mg IV every 6 hours as needed, fentanyl 100 mcg transdermal in addition to scheduled morphine immediate release 15 mg every 4 hours along with Decadron 8 mg IV twice daily for a total of 2 days of treatment -Dilaudid 2 mg every 3 hours as needed can remain for now although he has not needed this in the past 24 hours -We did discuss the possibility of potentially trying to resume radiation therapy. 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 He completed RT of spine and 2/5 fractions to shoulder but had progressing chest pain and low back pain and was unable to tolerate laying flat for RT -Patient was admitted to begin inpt chemo with carboplatin and Alimta. Will add keytruda to subsequent cycles in outpt setting. Given concern for pneumonia in addition to pharmacy not being able to prepare chemotherapy on Wednesday, this was deferred -We discussed initiating carboplatin/Alimta inpatient, hopefully on 07/10/2024 -They did express their concern for the need of a walker and hospital bed on discharge. We will work with case management to help to try to arrange these prior to discharge Fernando Colin MD
--- NOTE | 2024-07-08 17:23 | P.PN ---
Subjective Progress Note Date: 07/08/24 Patient reports much better pain control at this time. Gen: In NAD, non-toxic HEENT: normocephalic, atraumatic, hearing acuity is intant, mucous membranes moist CVS: perfusing all extremities well, no pitting edema, Respiratory: symmetric chest expansion, no accessory muscle use, GI: soft, NTTP, ND, : no suprapubic tenderness, no CVA tenderness MSK/Derm: no rashes, cyanosis Neuro: CN II-XII intact, no motor weakness, Psych: cooperative, euthymic mood, judgment and insight is intact Hospital course: Patient is a 59-year-old male with PMH of metastatic lung cancer (w/ mets to bone and liver) currently undergoing radiation therapy presented to the ED with severe pain. In the ED he was treated with Dilaudid for pain management and oncology consulted for intractable cancer pain management and cancer treatment. Vitals: T 100.2 F, P 90 bpm, RR 20, BP 148/79, O2 sat 96% on 2 L nasal cannula Chest x-ray: Right lower lobe airspace consolidation suspicious for pneumonia Labs: WBC 8.2, hemoglobin 10.8, sodium 129, chloride 92, lactic acid 1.5, albumin 3.3, troponin < 0.012 Respiratory panel: Not detected Chest x-ray shows right lower lobe airspace consolidation suspicious for pneumonia, procalcitonin pending to confirm, will consider de-escalating antibiotics if this is negative - If procalcitonin is elevated, will consider MRSA nares and escalation to vancomycin Assessment/Plan: Patient is a 59-year-old male with metastatic lung cancer presented to the ED with severe pain and admission accepted for intractable cancer pain management and cancer treatment. #. Metastatic lung cancer with intractable generalized pain C/W Dilaudid 2 mg IV every 3 hours as needed for pain management - C/w home fentanyl doses -Add morphine 15 mg every 4 hours Oncology consulted #. Hypoxia secondary to postobstructive process, pneumonia ruled out, abx discontinued Discontinue azithromycin 5 mg p.o. daily, ceftriaxone 2 g IVPB every 24 hours - Blood culture and sputum culture ordered Respiratory panel negative Pulmonology consulted #. Normocytic anemia (no recent baseline available for comparison) Low hemoglobin 10.8, normal MCV 90.4 Monitor CBC #. Hypochloremic Hyponatremia Low sodium 129 Monitor BMP #. Hypertension C/W amlodipine 5 mg p.o. daily, atenolol 100 mg p.o. daily, enalapril 10 mg p.o. daily, metoprolol 20 mg p.o. twice daily #. History of anxiety/depression C/W citalopram 20 mg p.o. daily #. History of thyroidectomy C/W levothyroxine 200 mcg p.o. daily #. History of GERD C/W omeprazole 40 mg p.o. daily F: 0.9 normal saline 20 mL/h E: Replete as required N: Regular diet A: Bedrest DVT prophylaxis: Lovenox 40 mg SQ daily The patient is admitted with an anticipated more than 2 midnight stay for evaluation of severe pain CODE STATUS: Full code Discussed with: Patient Anticipated discharge place: Home Objective - Vital Signs Vital signs: Vital Signs Temp 97.9 F 07/08/24 13:31 Pulse 64 07/08/24 13:31 Resp 19 07/08/24 13:31 BP 115/67 07/08/24 13:31 Pulse Ox 97 07/08/24 13:31 FiO2 Intake & Output 07/07/24 07/08/24 07/08/24 18:59 06:59 18:59 Intake Total 540 Output Total 1225 1250 Balance -685 -1250 Intake: Oral 540 Output: Urine 1225 1250 Other: Voiding Method Toilet Toilet Urinal Urinal # Voids 1 - Labs CBC & Chem 7: 07/07/24 07:14 07/07/24 07:14 Labs: Microbiology - Last 24 Hours (Table) 07/07/24 15:22 Gram Stain - Preliminary Sputum Sputum Culture - Preliminary 07/06/24 19:18 Blood Culture - Preliminary Blood
--- NOTE | 2024-07-09 10:37 | P.PN ---
Subjective Progress Note Date: 07/09/24 Patient reports much better pain control at this time. Per patient, oncology is planning on initiating chemotherapy tomorrow. Gen: In NAD, non-toxic HEENT: normocephalic, atraumatic, hearing acuity is intant, mucous membranes moist CVS: perfusing all extremities well, no pitting edema, Respiratory: symmetric chest expansion, no accessory muscle use, GI: soft, NTTP, ND, : no suprapubic tenderness, no CVA tenderness MSK/Derm: no rashes, cyanosis Neuro: CN II-XII intact, no motor weakness, Psych: cooperative, euthymic mood, judgment and insight is intact Hospital course: Patient is a 59-year-old male with PMH of metastatic lung cancer (w/ mets to bone and liver) currently undergoing radiation therapy presented to the ED with severe pain. In the ED he was treated with Dilaudid for pain management and oncology consulted for intractable cancer pain management and cancer treatment. Vitals: T 100.2 F, P 90 bpm, RR 20, BP 148/79, O2 sat 96% on 2 L nasal cannula Chest x-ray: Right lower lobe airspace consolidation suspicious for pneumonia Labs: WBC 8.2, hemoglobin 10.8, sodium 129, chloride 92, lactic acid 1.5, albumin 3.3, troponin < 0.012 Respiratory panel: Not detected Chest x-ray shows right lower lobe airspace consolidation suspicious for pneumonia, procalcitonin pending to confirm, will consider de-escalating antibiotics if this is negative - If procalcitonin is elevated, will consider MRSA nares and escalation to vancomycin Assessment/Plan: Patient is a 59-year-old male with metastatic lung cancer presented to the ED with severe pain and admission accepted for intractable cancer pain management and cancer treatment. #. Metastatic lung cancer with intractable generalized pain C/W Dilaudid 2 mg IV every 3 hours as needed for pain management - C/w home fentanyl doses -Continue morphine 15 mg every 4 hours Oncology consulted, plan is to initiate chemotherapy tomorrow #. Hypoxia secondary to postobstructive process, pneumonia ruled out, abx discontinued Discontinue azithromycin 5 mg p.o. daily, ceftriaxone 2 g IVPB every 24 hours - Blood culture and sputum culture ordered Respiratory panel negative Pulmonology consulted #. Normocytic anemia (no recent baseline available for comparison) Low hemoglobin 10.8, normal MCV 90.4 Monitor CBC #. Hypochloremic Hyponatremia Low sodium 129 Monitor BMP #. Hypertension C/W amlodipine 5 mg p.o. daily, atenolol 100 mg p.o. daily, enalapril 10 mg p.o. daily, metoprolol 20 mg p.o. twice daily #. History of anxiety/depression C/W citalopram 20 mg p.o. daily #. History of thyroidectomy C/W levothyroxine 200 mcg p.o. daily #. History of GERD C/W omeprazole 40 mg p.o. daily F: 0.9 normal saline 20 mL/h E: Replete as required N: Regular diet A: Bedrest DVT prophylaxis: Lovenox 40 mg SQ daily The patient is admitted with an anticipated more than 2 midnight stay for evaluation of severe pain CODE STATUS: Full code Discussed with: Patient Anticipated discharge place: Home Objective - Vital Signs Vital signs: Vital Signs Temp 97.4 F L 07/09/24 07:34 Pulse 52 L 07/09/24 07:34 Resp 18 07/09/24 07:34 BP 142/74 07/09/24 07:34 Pulse Ox 95 07/09/24 07:34 FiO2 Intake & Output 07/08/24 07/09/24 07/09/24 18:59 06:59 18:59 Intake Total 1198 540 Output Total 1250 550 Balance -52 -10 Intake: Oral 1198 540 Output: Urine 1250 550 Other: Voiding Method Toilet Toilet Toilet Urinal Urinal Urinal - Labs CBC & Chem 7: 07/07/24 07:14 07/07/24 07:14 Labs: Microbiology - Last 24 Hours (Table) 07/07/24 15:22 Gram Stain - Final Sputum Sputum Culture - Final 07/06/24 19:18 Blood Culture - Preliminary Blood
--- NOTE | 2024-07-09 13:06 | P.PN ---
Subjective Progress Note Date: 07/09/24 This is a very pleasant 59-year-old male patient with a known history of thyroid cancer status post thyroidectomy, hypertension, gastroesophageal reflux disease. He had a low-dose CT scan for lung cancer screening on March 23, 2024 that did reveal a 4.1 x 3.2 cm macrolobulated mass in the right infrahilar region suspicious for neoplasm. A PET scan from June 16, 2024 showed increased size now measuring 7.6 with marked FDG avid right upper lung mass consistent with primary lung cancer. There is metastatic disease with osseous metastasis, mediastinal and right hilar adenopathy, right supraclavicular metastatic lymph node and left adrenal gland metastatic nodule. He had been initiated on radia tion treatments but could not tolerate laying flat on the table due to pain. He had been on fentanyl patch and oral pain medications but presented here to the emergency room last evening with uncontrolled pain. His pain is all over but more significant in his right chest area. X-ray reveals persistent right lower lobe infiltrate. Some mild linear atelectasis of the lung base. White count 7.9. Hemoglobin 10.5. Platelets 223. Sodium 130. Potassium 4.6. Bicarb 29. BUN 12. Creatinine 0.54. Glucose 96. Viral screen negative. He is seen today in consultation in the emergency department. He is currently resting on a bed. He is awake and alert. He is in obvious physical pain. He has difficulty sitting up or even turning himself in bed. He does have a fentanyl patch in place and orders for Dilaudid as needed. He has been initiated on ceftriaxone and azithromycin. Lovenox for DVT prophylaxis. The patient is seen today July 08, 2024 in follow-up on the regular medical floor. He is currently resting comfortably in bed. No acute distress. Maintaining good O2 saturation in the 90s on 2 L/min per nasal cannula. He is afebrile. Hemodynamically stable. Pain is better controlled today compared to yesterday. Procalcitonin 0.09. Antibiotics discontinued. Remains on Decadron. Remains on Lovenox for DVT prophylaxis. The patient is seen today July 09, 2024 in follow-up on the regular medical floor. He is awake and alert in no acute distress. His pain is much better controlled. He denies any worsening shortness of breath, cough or congestion. No hemoptysis. He is maintaining good O2 saturations in the 90s on room air. He has been afebrile. Hemodynamically stable. Sputum culture revealed no growth. Blood cultures revealing no growth. He remains on Decadron. Lovenox for DVT prophylaxis. Objective - Vital Signs Vital signs: Vital Signs Temp 97.6 F 07/09/24 12:08 Pulse 62 07/09/24 12:08 Resp 16 07/09/24 12:08 BP 138/86 07/09/24 12:08 Pulse Ox 97 07/09/24 12:08 FiO2 Intake & Output 07/08/24 07/09/24 07/09/24 18:59 06:59 18:59 Intake Total 1198 540 Output Total 1250 550 Balance -52 -10 Intake: Oral 1198 540 Output: Urine 1250 550 Other: Voiding Method Toilet Toilet Toilet Urinal Urinal Urinal - Exam GENERAL EXAM: Alert, pleasant 59-year-old male, on room air, resting in bed, comfortable in no apparent distress. HEAD: Normocephalic. EYES: Normal reaction of pupils, equal size. NOSE: Clear with pink turbinates. THROAT: No erythema or exudates. NECK: No masses, no JVD. CHEST: No chest wall deformity. LUNGS: Equal air entry with no crackles, wheeze, rhonchi or dullness. CVS: S1 and S2 normal with no audible murmur, regular rhythm. ABDOMEN: No hepatosplenomegaly, normal bowel sounds, no guarding or rigidity. SPINE: No scoliosis or deformity SKIN: No rashes CENTRAL NERVOUS SYSTEM: No focal deficits, tone is normal in all 4 extremities. EXTREMITIES: There is no peripheral edema. No clubbing, no cyanosis. Peripheral pulses are intact. - Labs CBC & Chem 7: 07/07/24 07:14 07/07/24 07:14 Labs: Microbiology - Last 24 Hours (Table) 07/07/24 15:22 Gram Stain - Final Sputum Sputum Culture - Final 07/06/24 19:18 Blood Culture - Preliminary Blood Assessment and Plan Assessment: Intractable pain secondary to metastatic lung cancer with osseous involvement. PET scan from 06/16/2024 reveals a right posterior upper lung mass extending toward the pulmonary rashida measuring 7.6 x 7.4 cm. Multiple lymph node metastases. Multiple lytic lesions throughout the osseous structures including the distal right clavicle, right acromion, right aspect of C7 vertebrae right aspect of T1 vertebrae left posterior second rib, medial left scapula, medial left left clavicle and multiple vertebral bodies, right lateral ninth rib, bilateral iliac bones, right superior pubic ramus, and the sacrum. Received 2 out of 5 planned radiation treatments however was unable to tolerate lying flat on the table. Plan is to initiate carbo/Alimta this admission and eventual addition of Keytruda History of thyroid cancer, status post thyroidectomy in 2019 Hypertension Gastroesophageal reflux disease History of anxiety/depression Plan: The patient was seen and evaluated Medications reviewed Currently stable and on room air Pain is better controlled Plan is to be initiated on carbo/Alimta tomorrow I have personally seen and examined the patient, performed the documentation and the assessment and plan as written. Number of minutes spent on the visit: 10.
--- NOTE | 2024-07-10 08:57 | P.PN ---
Subjective Progress Note Date: 07/10/24 Patient reports much better pain control at this time. Planning on chemo today. Gen: In NAD, non-toxic HEENT: normocephalic, atraumatic, hearing acuity is intant, mucous membranes moist CVS: perfusing all extremities well, no pitting edema, Respiratory: symmetric chest expansion, no accessory muscle use, GI: soft, NTTP, ND, : no suprapubic tenderness, no CVA tenderness MSK/Derm: no rashes, cyanosis Neuro: CN II-XII intact, no motor weakness, Psych: cooperative, euthymic mood, judgment and insight is intact Hospital course: Patient is a 59-year-old male with PMH of metastatic lung cancer (w/ mets to bone and liver) currently undergoing radiation therapy presented to the ED with severe pain. In the ED he was treated with Dilaudid for pain management and oncology consulted for intractable cancer pain management and cancer treatment. Vitals: T 100.2 F, P 90 bpm, RR 20, BP 148/79, O2 sat 96% on 2 L nasal cannula Chest x-ray: Right lower lobe airspace consolidation suspicious for pneumonia Labs: WBC 8.2, hemoglobin 10.8, sodium 129, chloride 92, lactic acid 1.5, albumin 3.3, troponin < 0.012 Respiratory panel: Not detected Chest x-ray shows right lower lobe airspace consolidation suspicious for pneumonia, procalcitonin pending to confirm, will consider de-escalating antibio tics if this is negative - If procalcitonin is elevated, will consider MRSA nares and escalation to vancomycin Assessment/Plan: Patient is a 59-year-old male with metastatic lung cancer presented to the ED with severe pain and admission accepted for intractable cancer pain management and cancer treatment. #. Metastatic lung cancer with intractable generalized pain C/W Dilaudid 2 mg IV every 3 hours as needed for pain management - C/w home fentanyl doses -Continue morphine 15 mg every 4 hours Oncology consulted, plan is to initiate chemotherapy tomorrow #. Hypoxia secondary to postobstructive process, pneumonia ruled out, abx discontinued Discontinue azithromycin 5 mg p.o. daily, ceftriaxone 2 g IVPB every 24 hours - Blood culture and sputum culture ordered Respiratory panel negative Pulmonology consulted #. Normocytic anemia (no recent baseline available for comparison) Low hemoglobin 10.8, normal MCV 90.4 Monitor CBC #. Hypochloremic Hyponatremia Low sodium 129 Monitor BMP #. Hypertension C/W amlodipine 5 mg p.o. daily, atenolol 100 mg p.o. daily, enalapril 10 mg p.o. daily, metoprolol 20 mg p.o. twice daily #. History of anxiety/depression C/W citalopram 20 mg p.o. daily #. History of thyroidectomy C/W levothyroxine 200 mcg p.o. daily #. History of GERD C/W omeprazole 40 mg p.o. daily F: 0.9 normal saline 20 mL/h E: Replete as required N: Regular diet A: Bedrest DVT prophylaxis: Lovenox 40 mg SQ daily The patient is admitted with an anticipated more than 2 midnight stay for evaluation of severe pain CODE STATUS: Full code Discussed with: Patient Anticipated discharge place: Home Objective - Vital Signs Vital signs: Vital Signs Temp 97.5 F L 07/10/24 08:00 Pulse 52 L 07/10/24 08:00 Resp 17 07/10/24 08:00 BP 149/78 07/10/24 08:00 Pulse Ox 98 07/10/24 08:00 FiO2 Intake & Output 07/09/24 07/10/24 07/10/24 18:59 06:59 18:59 Intake Total 1198 540 Output Total 600 900 Balance 598 -360 Intake: Oral 1198 540 Output: Urine 600 900 Other: Voiding Method Toilet Urinal Urinal - Labs CBC & Chem 7: 07/07/24 07:14 07/07/24 07:14 Labs: Microbiology - Last 24 Hours (Table) 07/06/24 19:18 Blood Culture - Preliminary Blood 07/07/24 15:22 Gram Stain - Final Sputum Sputum Culture - Final
[2024-07-10] MEDS: DOXAZOSIN 4 MG TAB PO SCH (10:35)
[2024-07-10] MEDS: SENNOSIDES-DOCUSATE SODIUM 1 EACH TAB PO SCH (10:35)
--- NOTE | 2024-07-10 12:31 | P.PN ---
Subjective Progress Note Date: 07/10/24 This is a very pleasant 59-year-old male patient with a known history of thyroid cancer status post thyroidectomy, hypertension, gastroesophageal reflux disease. He had a low-dose CT scan for lung cancer screening on March 23, 2024 that did reveal a 4.1 x 3.2 cm macrolobulated mass in the right infrahilar region suspicious for neoplasm. A PET scan from June 16, 2024 showed increased size now measuring 7.6 with marked FDG avid right upper lung mass consistent with primary lung cancer. There is metastatic disease with osseous metastasis, mediastinal and right hilar adenopathy, right supraclavicular metastatic lymph node and left adrenal gland metastatic nodule. He had been initiated on radia tion treatments but could not tolerate laying flat on the table due to pain. He had been on fentanyl patch and oral pain medications but presented here to the emergency room last evening with uncontrolled pain. His pain is all over but more significant in his right chest area. X-ray reveals persistent right lower lobe infiltrate. Some mild linear atelectasis of the lung base. White count 7.9. Hemoglobin 10.5. Platelets 223. Sodium 130. Potassium 4.6. Bicarb 29. BUN 12. Creatinine 0.54. Glucose 96. Viral screen negative. He is seen today in consultation in the emergency department. He is currently resting on a bed. He is awake and alert. He is in obvious physical pain. He has difficulty sitting up or even turning himself in bed. He does have a fentanyl patch in place and orders for Dilaudid as needed. He has been initiated on ceftriaxone and azithromycin. Lovenox for DVT prophylaxis. The patient is seen today July 08, 2024 in follow-up on the regular medical floor. He is currently resting comfortably in bed. No acute distress. Maintaining good O2 saturation in the 90s on 2 L/min per nasal cannula. He is afebrile. Hemodynamically stable. Pain is better controlled today compared to yesterday. Procalcitonin 0.09. Antibiotics discontinued. Remains on Decadron. Remains on Lovenox for DVT prophylaxis. The patient is seen today July 09, 2024 in follow-up on the regular medical floor. He is awake and alert in no acute distress. His pain is much better controlled. He denies any worsening shortness of breath, cough or congestion. No hemoptysis. He is maintaining good O2 saturations in the 90s on room air. He has been afebrile. Hemodynamically stable. Sputum culture revealed no growth. Blood cultures revealing no growth. He remains on Decadron. Lovenox for DVT prophylaxis. The patient is seen today July 10, 2024 in follow-up on the regular medical floor. He is currently resting fairly comfortably in bed. He continues to have multiple areas of bone pain. This has been better controlled with the current regime. He denies any worsening shortness of breath, cough or congestion. No hemoptysis. He is maintaining good O2 saturations in the 90s on room air. Sputum culture revealed no growth. Blood cultures revealed no growth.. Lovenox for DVT prophylaxis. The plan is for induction chemotherapy today. Objective - Vital Signs Vital signs: Vital Signs Temp 97.5 F L 07/10/24 08:00 Pulse 52 L 07/10/24 08:00 Resp 17 07/10/24 08:00 BP 149/78 07/10/24 08:00 Pulse Ox 98 07/10/24 08:00 FiO2 Intake & Output 07/09/24 07/10/24 07/10/24 18:59 06:59 18:59 Intake Total 1198 540 Output Total 600 900 Balance 598 -360 Intake: Oral 1198 540 Output: Urine 600 900 Other: Voiding Method Toilet Urinal Urinal Urinal - Exam GENERAL EXAM: Alert, 59-year-old male, on room air, fairly comfortable in no apparent distress. HEAD: Normocephalic. EYES: Normal reaction of pupils, equal size. NOSE: Clear with pink turbinates. THROAT: No erythema or exudates. NECK: No masses, no JVD. CHEST: No chest wall deformity. LUNGS: Equal air entry with few rhonchi over the right lung base. CVS: S1 and S2 normal with no audible murmur, regular rhythm. ABDOMEN: No hepatosplenomegaly, normal bowel sounds, no guarding or rigidity. SPINE: No scoliosis or deformity SKIN: No rashes CENTRAL NERVOUS SYSTEM: No focal deficits, tone is normal in all 4 extremities. EXTREMITIES: There is no peripheral edema. No clubbing, no cyanosis. Peripheral pulses are intact. - Labs CBC & Chem 7: 07/07/24 07:14 10/04/24 07:14 Labs: Microbiology - Last 24 Hours (Table) 07/06/24 19:18 Blood Culture - Preliminary Blood 07/07/24 15:22 Gram Stain - Final Sputum Sputum Culture - Final Assessment and Plan Assessment: Intractable pain secondary to metastatic lung cancer with osseous involvement. PET scan from 06/16/2024 reveals a right posterior upper lung mass extending toward the pulmonary rashida measuring 7.6 x 7.4 cm. Multiple lymph node metastases. Multiple lytic lesions throughout the osseous structures including the distal right clavicle, right acromion, right aspect of C7 vertebrae right aspect of T1 vertebrae left posterior second rib, medial left scapula, medial left left clavicle and multiple vertebral bodies, right lateral ninth rib, casi ateral iliac bones, right superior pubic ramus, and the sacrum. Received 2 out of 5 planned radiation treatments however was unable to tolerate lying flat on the table. Plan is to initiate carbo/Alimta today and eventual addition of Keytruda History of thyroid cancer, status post thyroidectomy in 2019 Hypertension Gastroesophageal reflux disease History of anxiety/depression Plan: The patient was seen and evaluated Medications reviewed Currently stable and on room air Pain is better controlled Plan is to initiate carbo/Alimta today This patient was seen independently by the pulmonary nurse practitioner addressing pulmonary issues I have personally seen and examined the patient, performed the documentation and the assessment and plan as written. Number of minutes spent on the visit: 24.
[2024-07-10 13:10] LABS: Basophils % (A) 0 %; Eosinophils % (A) 0 %; HCT 30.6 % (39.0-53.0); Lymphocytes # (A) 0.6 k/uL (1.0-4.8); Lymphocytes % (A) 7 %; MCH 30.2 pg (25.0-35.0); MCHC 32.5 g/dL (31.0-37.0); MCV 92.8 fL (80.0-100.0); Mean Platelet Volume 7.3; Monocytes # (A) 0.4 k/uL (0-1.0); Monocytes % (A) 5 %; Neutrophils # (A) 7.3 k/uL (1.3-7.7); Neutrophils % (A) 88 %; Platelet Count 317 k/uL (150-450); RDW 14.1 % (11.5-15.5); WBC 8.3 k/uL (3.8-10.6)
[2024-07-10 13:20] LABS: ALT 42 U/L (4-49); AST 35 U/L (17-59); African American GFR (CKD) >90 (>60 ml/min/1.73 sqM); Albumin 2.8 g/dL (3.5-5.0); Albumin/Globulin Ratio 1.1; Alkaline Phosphatase 80 U/L (38-126); Anion Gap 3 mmol/L; Blood Urea Nitrogen 30 mg/dL (9-20); Calcium 8.7 mg/dL (8.4-10.2); Carbon Dioxide 30 mmol/L (22-30); Chloride 106 mmol/L (98-107); Globulin 2.6 g/dL; Glucose 118 mg/dL (74-99); Non-African American GFR(CKD) >90 (>60 ml/min/1.73 sqM); Sodium 139 mmol/L (137-145); Total Bilirubin 0.4 mg/dL (0.2-1.3); Total Protein 5.4 g/dL (6.3-8.2)
[2024-07-10] MEDS: FAMOTIDINE 20 MG/2 ML VIAL IV ONE (13:53)
[2024-07-10] MEDS: ONDANSETRON 16 MG in SODIUM CHLORIDE 0.9% 50 ML IVPB ONE (13:54)
[2024-07-10] MEDS: CARBOPLATIN IV ONE (14:36)
[2024-07-10] MEDS: SODIUM CHLORIDE 0.9% IV ONE ×2 (14:36→16:30)
--- NOTE | 2024-07-10 14:37 | P.PN ---
Subjective Progress Note Date: 07/10/24 No acute events. Reporting significant improvement in pain control. Plan is to start inpt chemo today Objective - Vital Signs Vital signs: Vital Signs Temp 97.5 F L 07/10/24 08:00 Pulse 52 L 07/10/24 08:00 Resp 17 07/10/24 08:00 BP 149/78 07/10/24 08:00 Pulse Ox 98 07/10/24 08:00 FiO2 Intake & Output 07/09/24 07/10/24 07/10/24 18:59 06:59 18:59 Intake Total 1198 540 Output Total 600 900 Balance 598 -360 Intake: Oral 1198 540 Output: Urine 600 900 Other: Voiding Method Toilet Urinal Urinal Urinal - Constitutional General appearance: Present: average body habitus, no acute distress - EENT Eyes: Present: anicteric sclerae, EOMI ENT: Present: hearing grossly normal - Respiratory Details: breathing is even and unlabored - Cardiovascular Details: well perfused - Integumentary Integumentary: Absent: cyanotic, jaundiced - Musculoskeletal Musculoskeletal: Present: strength equal bilaterally - Psychiatric Psychiatric: Present: A&O x's 3 - Labs CBC & Chem 7: 07/10/24 12:41 07/10/24 12:41 Labs: Microbiology - Last 24 Hours (Table) 07/06/24 19:18 Blood Culture - Preliminary Blood 07/07/24 15:22 Gram Stain - Final Sputum Sputum Culture - Final Assessment and Plan (1) Adenocarcinoma of lung Current Visit: Yes Status: Acute Priority: High Code(s): C34.90 - MALIGNANT NEOPLASM OF UNSP PART OF UNSP BRONCHUS OR LUNG SNOMED Code(s): 341260474 (2) Cancer associated pain Current Visit: Yes Status: Acute Priority: High Code(s): G89.3 - NEOPLASM RELATED PAIN (ACUTE) (CHRONIC) SNOMED Code(s): 82105050317889 (3) Pneumonia Current Visit: Yes Status: Acute Priority: High Code(s): J18.9 - PNEUMONIA, UNSPECIFIED ORGANISM SNOMED Code(s): 806313051 Plan: Intractable pain r/t malignancy: Presented with progressing low back and chest pain. Was taking morphine IR 30mg and fentanyl 100mcg patch at home without pain control -Toradol 15 mg IV every 6 hours as needed was added in addition to Decadron 8 mg twice daily IV with significant improvement -Scheduled morphine immediate release 15 mg every 4 hours was also added -Continue Toradol 15 mg IV every 6 hours as needed, fentanyl 100 mcg transdermal in addition to scheduled morphine immediate release 15 mg every 4 hours along with Decadron 8 mg IV twice daily for a total of 2 days of treatment -Dilaudid 2 mg every 3 hours as needed can remain for now although he has not needed this for >48 hours -We did discuss the possibility of potentially trying to resume radiation therapy. He feels he would not be able to raise his arm sufficiently to do so at this time Pneumonia: -Had temperature 100.5 [employer] -CXR showing suspicion for RLL pneumonia -IV abx started on admission with low suspicion for pneumonia -IV antibiotics have been discontinued by pulmonology Metastatic NSCLC: -Oncological history and plan as dictated in HPI -Due to progressing and intractable pain, pt was started on RT of spine and shoulder with plans to start carbo/alimta/keytruda after RT. He completed RT of spine and 2/5 fractions to shoulder but had progressing chest pain and low back pain and was unable to tolerate laying flat for RT -Patient was admitted to begin inpt chemo with carboplatin and Alimta. Will add keytruda to subsequent cycles in outpt setting. Given concern for pneumonia in addition to pharmacy not being able to prepare chemotherapy on Wednesday, this was deferred -We discussed initiating carboplatin/Alimta inpatient. Plan to start treatment this afternoon. -They did express their concern for the need of a walker and hospital bed on discharge. We will work with case management to help to try to arrange these prior to discharge
[2024-07-10] MEDS: PEMETREXED DISODIUM IV ONE (16:30)
[2024-07-10] MEDS: FOLIC ACID 1 MG TAB PO SCH (16:38)
[2024-07-10] MEDS: CYANOCOBALAMIN 1,000 MCG/ML 1 ML VIAL SQ ONE (16:47)
[2024-07-10] MEDS: ZOLEDRONIC ACID 4 MG in SODIUM CHLORIDE 0.9% 100 ML IV ONE (17:15)
[2024-07-11 07:53] VITALS: RESP 16; TEMP 97.5
[2024-07-11 08:23] LABS: Basophils # (A) 0.01 X 10*3/uL (0.00-0.10); Basophils % (A) 0.1 %; Eosinophils # (A) 0 X 10*3/uL (0.04-0.35); Eosinophils % (A) 0 %; HCT 29.2 % (39.6-50.0); HGB 9.1 g/dL (13.0-17.0); Lymphocytes # (A) 0.81 X 10*3/uL (0.90-5.00); Lymphocytes % (A) 9.3 %; MCH 29.4 pg (27.0-32.0); MCHC 31.2 g/dL (32.0-37.0); MCV 94.2 FL (80.0-97.0); Mean Platelet Volume 9.9 FL (9.5-12.2); Monocytes # (A) 0.71 X 10*3/uL (0.20-1.00); Monocytes % (A) 8.1 %; NRBC Per 100 WBC 0 X 10*3/uL (0.00-0.01); Neutrophils # (A) 7.11 X 10*3/uL (1.80-7.70); Neutrophils % (A) 81.4 %; Platelet Count 273 X 10*3/uL (140-440); RDW 13.9 % (11.5-14.5); WBC 8.74 X 10*3/uL (4.50-10.00)
[2024-07-11 08:42] LABS: BUN/Creat Ratio 33.57 Ratio (12.00-20.00); Blood Urea Nitrogen 23.5 mg/dL (9.0-27.0); Carbon Dioxide 26.6 mmol/L (21.6-31.8); Chloride 105 mmol/L (96-109); Glucose 87 mg/dL (70-110); Potassium 4.8 mmol/L (3.5-5.5); Sodium 138 mmol/L (135-145)
[2024-07-11 08:43] LABS: ALT 44 U/L (10-49); AST 33 U/L (14-35); Albumin 2.7 g/dL (3.8-4.9); Albumin/Globulin Ratio 1.12 Ratio (1.60-3.17); Alkaline Phosphatase 78 U/L (41-126); Globulin 2.4 g/dL (1.6-3.3); Total Bilirubin <0.2 mg/dL (0.3-1.2); Total Protein 5.1 g/dL (6.2-8.2)
[2024-07-11] MEDS ORDERED: MAGNESIUM HYDROXIDE 2,400 MG/30 ML CUP PO PRN (11:27)
[2024-07-11] MEDS: CALCIUM CARB-VIT D 500 MG-5 MCG TAB PO SCH (12:00)
[2024-07-11] MEDS: SENNOSIDES-DOCUSATE SODIUM 1 EACH TAB PO SCH (12:01)
[2024-07-11] MEDS: SALT AND SODA MOUTHWASH 1,000 ML PO SCH (12:01)
[2024-07-11 12:26] VITALS: BP 131/80; PULSE 54
--- NOTE | 2024-07-11 13:00 | P.PN ---
Subjective Progress Note Date: 07/11/24 This is a very pleasant 59-year-old male patient with a known history of thyroid cancer status post thyroidectomy, hypertension, gastroesophageal reflux disease. He had a low-dose CT scan for lung cancer screening on March 23, 2024 that did reveal a 4.1 x 3.2 cm macrolobulated mass in the right infrahilar region suspicious for neoplasm. A PET scan from June 16, 2024 showed increased size now measuring 7.6 with marked FDG avid right upper lung mass consistent with primary lung cancer. There is metastatic disease with osseous metastasis, mediastinal and right hilar adenopathy, right supraclavicular metastatic lymph node and left adrenal gland metastatic nodule. He had been initiated on radia tion treatments but could not tolerate laying flat on the table due to pain. He had been on fentanyl patch and oral pain medications but presented here to the emergency room last evening with uncontrolled pain. His pain is all over but more significant in his right chest area. X-ray reveals persistent right lower lobe infiltrate. Some mild linear atelectasis of the lung base. White count 7.9. Hemoglobin 10.5. Platelets 223. Sodium 130. Potassium 4.6. Bicarb 29. BUN 12. Creatinine 0.54. Glucose 96. Viral screen negative. He is seen today in consultation in the emergency department. He is currently resting on a bed. He is awake and alert. He is in obvious physical pain. He has difficulty sitting up or even turning himself in bed. He does have a fentanyl patch in place and orders for Dilaudid as needed. He has been initiated on ceftriaxone and azithromycin. Lovenox for DVT prophylaxis. The patient is seen today July 08, 2024 in follow-up on the regular medical floor. He is currently resting comfortably in bed. No acute distress. Maintaining good O2 saturation in the 90s on 2 L/min per nasal cannula. He is afebrile. Hemodynamically stable. Pain is better controlled today compared to yesterday. Procalcitonin 0.09. Antibiotics discontinued. Remains on Decadron. Remains on Lovenox for DVT prophylaxis. The patient is seen today July 09, 2024 in follow-up on the regular medical floor. He is awake and alert in no acute distress. His pain is much better controlled. He denies any worsening shortness of breath, cough or congestion. No hemoptysis. He is maintaining good O2 saturations in the 90s on room air. He has been afebrile. Hemodynamically stable. Sputum culture revealed no growth. Blood cultures revealing no growth. He remains on Decadron. Lovenox for DVT prophylaxis. The patient is seen today July 10, 2024 in follow-up on the regular medical floor. He is currently resting fairly comfortably in bed. He continues to have multiple areas of bone pain. This has been better controlled with the current regime. He denies any worsening shortness of breath, cough or congestion. No hemoptysis. He is maintaining good O2 saturations in the 90s on room air. Sputum culture revealed no growth. Blood cultures revealed no growth.. Lovenox for DVT prophylaxis. The plan is for induction chemotherapy today. The patient is seen today July 11, 2024 in follow-up on the regular medical floor. He is currently resting in bed. Awake and alert in no acute distress. Continue good O2 saturations in the 90s on room air. He was worked up for possible home oxygen however his O2 saturations stayed in the 90s with a 6- minute walk. He has been afebrile. Hemodynamically stable. Sputum culture revealed no growth. Blood culture revealed no growth. White count 8.7. Hemoglobin 9.1. Platelets 273. Sodium 138. Potassium 4.8. Bicarb 27. BUN 24. Creatinine 0.7. Glucose 87. He was initiated on chemotherapy in the form of carboplatin and Alimta yesterday. Objective - Vital Signs Vital signs: Vital Signs Temp 97.5 F L 07/11/24 12:05 Pulse 54 L 07/11/24 12:05 Resp 16 07/11/24 12:05 BP 131/80 07/11/24 12:05 Pulse Ox 95 07/11/24 12:05 FiO2 21 07/11/24 08:43 Intake & Output 07/10/24 07/11/24 07/11/24 18:59 06:59 18:59 Intake Total 780 540 Output Total 500 1125 Balance 280 -585 Intake: Oral 780 540 Output: Urine 500 1125 Other: Voiding Method Urinal Urinal - Exam GENERAL EXAM: Alert, pleasant 59-year-old male, on room air, resting in bed, fairly comfortable in no apparent distress. HEAD: Normocephalic. EYES: Normal reaction of pupils, equal size. NOSE: Clear with pink turbinates. THROAT: No erythema or exudates. NECK: No masses, no JVD. CHEST: No chest wall deformity. LUNGS: Equal air entry with few rhonchi over the right lung base. CVS: S1 and S2 normal with no audible murmur, regular rhythm. ABDOMEN: No hepatosplenomegaly, normal bowel sounds, no guarding or rigidity. SPINE: No scoliosis or deformity SKIN: No rashes CENTRAL NERVOUS SYSTEM: No focal deficits, tone is normal in all 4 extremities. EXTREMITIES: There is no peripheral edema. No clubbing, no cyanosis. Peripheral pulses are intact. - Labs CBC & Chem 7: 07/11/24 05:42 07/11/24 05:42 Labs: Abnormal Lab Results - Last 24 Hours (Table) 07/10/24 07/10/24 07/11/24 Range/Units 12:41 12:41 05:42 RBC 3.30 L 3.10 L (4.30-5.90) m/uL Hgb 10.0 L 9.1 L (13.0-17.5) gm/dL Hct 30.6 L 29.2 L (39.0-53.0) % MCHC 31.2 L (32.0-37.0) g/dL Immature Gran # 0.10 H (0.00-0.04) X 10*3/uL Lymphocytes # 0.6 L 0.81 L (1.0-4.8) k/uL Eosinophils # 0 L (0.04-0.35) X 10*3/uL BUN 30 H (9-20) mg/dL BUN/Creatinine Ratio (12.00-20.00) Ratio Glucose 118 H (74-99) mg/dL Calcium (8.7-10.3) mg/dL Total Bilirubin (0.3-1.2) mg/dL Total Protein 5.4 L (6.3-8.2) g/dL Albumin 2.8 L (3.5-5.0) g/dL Albumin/Globulin Ratio (1.60-3.17) Ratio 07/11/24 Range/Units 05:42 RBC (4.30-5.90) m/uL Hgb (13.0-17.5) gm/dL Hct (39.0-53.0) % MCHC (32.0-37.0) g/dL Immature Gran # (0.00-0.04) X 10*3/uL Lymphocytes # (1.0-4.8) k/uL Eosinophils # (0.04-0.35) X 10*3/uL BUN (9-20) mg/dL BUN/Creatinine Ratio 33.57 H (12.00-20.00) Ratio Glucose (74-99) mg/dL Calcium 8.0 L (8.7-10.3) mg/dL Total Bilirubin <0.2 L (0.3-1.2) mg/dL Total Protein 5.1 L (6.3-8.2) g/dL Albumin 2.7 L (3.5-5.0) g/dL Albumin/Globulin Ratio 1.12 L (1.60-3.17) Ratio Assessment and Plan Assessment: Intractable pain secondary to metastatic lung cancer with osseous involvement. PET scan from 06/16/2024 reveals a right posterior upper lung mass extending toward the pulmonary rashida measuring 7.6 x 7.4 cm. Multiple lymph node meta stases. Multiple lytic lesions throughout the osseous structures including the distal right clavicle, right acromion, right aspect of C7 vertebrae right aspect of T1 vertebrae left posterior second rib, medial left scapula, medial left left clavicle and multiple vertebral bodies, right lateral ninth rib, bilateral iliac bones, right superior pubic ramus, and the sacrum. Received 2 out of 5 planned radiation treatments however was unable to tolerate lying flat on the table. Initiated on carboplatin/Alimta yesterday History of thyroid cancer, status post thyroidectomy in 2019 Hypertension Gastroesophageal reflux disease History of anxiety/depression Plan: The patient was seen and evaluated Medications and labs reviewed Currently stable and on room air Pain is better controlled Initiated on carbo/Alimta yesterday Discharge planning in place This patient was seen independently by the pulmonary nurse practitioner addressing pulmonary issues I have personally seen and examined the patient, performed the documentation and the assessment and plan as written. Number of minutes spent on the visit: 23.
--- NOTE | 2024-07-11 16:25 | P.PN ---
Subjective Progress Note Date: 07/11/24 Principal diagnosis: Pain from metastatic malignancy, NSCLC In f/u today pt is doing well on current analgesic regimen, pain is tolerable and he is able to function. Last BM was 2 days ago. He is tolerating fluids and some food, appetite is fair. He is ambulatory independently. No other acute physical c/o. Objective - Vital Signs Vital signs: Vital Signs Temp 97.5 F L 07/11/24 07:21 Pulse 66 07/11/24 10:05 Resp 16 07/11/24 07:21 BP 143/85 07/11/24 07:21 Pulse Ox 94 L 07/11/24 10:05 FiO2 21 07/11/24 08:43 Intake & Output 07/10/24 07/11/24 07/11/24 18:59 06:59 18:59 Intake Total 780 540 Output Total 500 1125 Balance 280 -585 Intake: Oral 780 540 Output: Urine 500 1125 Other: Voiding Method Urinal - Constitutional General appearance: Present: average body habitus, cooperative, no acute distress - EENT Eyes: Present: anicteric sclerae, EOMI ENT: Present: hearing grossly normal, normal oropharynx - Respiratory Respiratory: bilateral: CTA - Cardiovascular Rhythm: regular Heart sounds: normal: S1, S2 Abnormal Heart Sounds: Absent: systolic murmur, diastolic murmur, rub, S3 Gallop, S4 Gallop, click, other - Peripheral edema leg Peripheral Edema: bilateral: None - Gastrointestinal General gastrointestinal: Present: distended, normal bowel sounds, soft. Absent: absent bowel sounds, decreased bowel sounds, hepatomegaly, hyperactive bowel sounds, organomegaly, rigid, scaphoid, splenomegaly, tenderness, umbilical hernia, ventral hernia - Neurologic Neurologic: Present: CNII-XII intact - Musculoskeletal Musculoskeletal: Present: generalized weakness, strength equal bilaterally - Labs CBC & Chem 7: 07/11/24 05:42 07/11/24 05:42 Labs: Abnormal Lab Results - Last 24 Hours (Table) 07/10/24 07/10/24 07/11/24 Range/Units 12:41 12:41 05:42 RBC 3.30 L 3.10 L (4.30-5.90) m/uL Hgb 10.0 L 9.1 L (13.0-17.5) gm/dL Hct 30.6 L 29.2 L (39.0-53.0) % MCHC 31.2 L (32.0-37.0) g/dL Immature Gran # 0.10 H (0.00-0.04) X 10*3/uL Lymphocytes # 0.6 L 0.81 L (1.0-4.8) k/uL Eosinophils # 0 L (0.04-0.35) X 10*3/uL BUN 30 H (9-20) mg/dL BUN/Creatinine Ratio (12.00-20.00) Ratio Glucose 118 H (74-99) mg/dL Calcium (8.7-10.3) mg/dL Total Bilirubin (0.3-1.2) mg/dL Total Protein 5.4 L (6.3-8.2) g/dL Albumin 2.8 L (3.5-5.0) g/dL Albumin/Globulin Ratio (1.60-3.17) Ratio 07/11/24 Range/Units 05:42 RBC (4.30-5.90) m/uL Hgb (13.0-17.5) gm/dL Hct (39.0-53.0) % MCHC (32.0-37.0) g/dL Immature Gran # (0.00-0.04) X 10*3/uL Lymphocytes # (1.0-4.8) k/uL Eosinophils # (0.04-0.35) X 10*3/uL BUN (9-20) mg/dL BUN/Creatinine Ratio 33.57 H (12.00-20.00) Ratio Glucose (74-99) mg/dL Calcium 8.0 L (8.7-10.3) mg/dL Total Bilirubin <0.2 L (0.3-1.2) mg/dL Total Protein 5.1 L (6.3-8.2) g/dL Albumin 2.7 L (3.5-5.0) g/dL Albumin/Globulin Ratio 1.12 L (1.60-3.17) Ratio Assessment and Plan (1) NSCLC metastatic to bone Current Visit: Yes Status: Acute Priority: High Code(s): C34.90 - MALIGNANT NEOPLASM OF UNSP PART OF UNSP BRONCHUS OR LUNG; C79.51 - SECONDARY MALIGNANT NEOPLASM OF BONE SNOMED Code(s): 708901150 (2) Cancer associated pain Current Visit: Yes Status: Acute Priority: High Code(s): G89.3 - NEOPLASM RELATED PAIN (ACUTE) (CHRONIC) SNOMED Code(s): 70238648596140 Plan: Intractable pain 2/2 malignancy -Pain controlled here in the hospital with a combination of antiinflammatory medications and narcotics -Discussed case with IM. Pt will cont fentanyl 100mcg, oxyIR 15-30mg every 4 hours as needed for breakthrough pain, dexamathasone taper prescribed, cont PPI while on taper, tramadol 25mg BID. -Medications for the prevention of narcotic induced constipation Metastatic NSCLC -Oncological history and plan as dictated in consult -Due to intractable pain, XRT was going to be started 1st but, pt could not position. He completed XRT spine and 2/5 fractions to shoulder. His pain was progressing and was unable to lay flat. He was sent to hospital for pain mgmt. He was given 1st cycle of chemo with carbo/alimta due to prolonged time to treatment. Carbo/alimta/keytruda will be continued outpt. Will see how/when XRT fits in-if pt has good pain control for now, can cont with chemo/IO.
--- NOTE | 2024-07-11 17:06 | P.DS ---
Providers Date of admission: 07/06/24 20:50 Expected date of discharge: 07/11/24 Attending physician: Bernie Coleman MD Consults: 07/06/24 20:24 Consult Physician Routine Consulting Provider: Kevin Jansen Consult Reason/Comments: cancer treatment Do you want consulting provider notified?: Yes 07/06/24 20:54 Consult Physician Routine Consulting Provider: Rusty Ferraro Consult Reason/Comments: hypoxia Do you want consulting provider notified?: Yes 07/07/24 13:42 Consult Physician Routine Consulting Provider: Akira Miles Consult Reason/Comments: Intractable pain, osseous metastasis Do you want consulting provider notified?: Yes Primary care physician: [facility] Course: #. Metastatic lung cancer with intractable generalized pain #. Hypoxia secondary to postobstructive process, pneumonia ruled out, abx discontinued #. Normocytic anemia (no recent baseline available for comparison) #. Hypochloremic Hyponatremia #. Hypertension #. History of anxiety/depression #. History of thyroidectomy #. History of GERD Gen: In NAD, non-toxic HEENT: normocephalic, atraumatic, hearing acuity is intant, mucous membranes moist CVS: perfusing all extremities well, no pitting edema, Respiratory: symmetric chest expansion, no accessory muscle use, GI: soft, NTTP, ND, : no suprapubic tenderness, no CVA tenderness MSK/Derm: no rashes, cyanosis Neuro: CN II-XII intact, no motor weakness, Psych: cooperative, euthymic mood, judgment and insight is intact Hospital course: Patient is a 59-year-old male with PMH of metastatic lung cancer (w/ mets to bone and liver) currently undergoing radiation therapy presented to the ED with severe pain. In the ED he was treated with Dilaudid for pain management and oncology consulted for intractable cancer pain management and cancer treatment. Vitals: T 100.2 F, P 90 bpm, RR 20, BP 148/79, O2 sat 96% on 2 L nasal cannula Chest x-ray: Right lower lobe airspace consolidation suspicious for pneumonia Labs: WBC 8.2, hemoglobin 10.8, sodium 129, chloride 92, lactic acid 1.5, albumin 3.3, troponin < 0.012 Respiratory panel: Not detected Chest x-ray shows right lower lobe airspace consolidation suspicious for pneumonia, procalcitonin was negative and therefore patient antibiotics were stopped. Due to there being no active infection, oncology decided to initiate first dose of chemotherapy while in the hospital. Patient received his first dose of chemotherapy on 07/11 and was deemed amenable for discharge home with hospital bed and walker. His opiate medications were adjusted to improve his pain control at home. Dexamethasone taper was added per oncology recommendations. Patient will follow-up in oncology clinic and ultimately will need radiation as well. I spent 45 minutes coordinating this discharge Patient Condition at Discharge: Fair Plan - Discharge Summary Discharge Rx Participant: No New Discharge Prescriptions: New Citalopram Hydrobromide [CeleXA] 20 mg PO DAILY #30 tab Sennosides-Docusate Sodium [Senokot-S] 2 each PO BID #60 tab oxyCODONE HCL [OxyIR] 15 mg PO Q4H PRN 3 Days #90 tab PRN Reason: Pain dexAMETHasone ORAL [Hexadrol] 4 mg PO BID #46 tablet Calcium Carb-Vit D 500Mg-5Mcg [Oscal 500+D 5 Mcg (200 Iu)] 1 each PO BID- W/MEALS #60 tab Ondansetron Odt [Zofran Odt] 4 mg PO Q8HR PRN #30 tab PRN Reason: Nausea traMADol HCL 25 mg PO BID 3 Days #60 tab Continue Omeprazole 40 mg PO DAILY Levothyroxine Sodium [Synthroid] 200 mcg PO DAILY Vit C/E/Zn/Coppr/Lutein/Zeaxan [Preservision Areds 2 Softgel] 1 cap PO BID Mv-Min/Folic/K1/Lycopen/Lutein [Centrum Silver Men Tablet] 1 tab PO DAILY fentaNYL 100MCG/HR PATCH [Duragesic 100MCG/HR] 1 patch TRANSDERM Q72H Cholecalciferol (Vitamin D3) [Vitamin D3 (50 Mcg = 2000 Iu) Chew Tab] 50 mcg PO DAILY Naloxone HCl [Narcan] 4 mg NASAL DIRECTED PRN PRN Reason: overdose Changed Terazosin [Hytrin] 5 mg PO DAILY #0 Discontinued Metoprolol Tartrate [Lopressor] 25 mg PO BID FLUoxetine HCL [PROzac] 10 mg PO DAILY Morphine Sulfate Ir [MSIR] 15 - 30 mg PO Q4H Discharge Medication List Omeprazole 40 mg PO DAILY 07/09/16 [History] Levothyroxine Sodium [Synthroid] 200 mcg PO DAILY 07/06/24 [History] Mv-Min/Folic/K1/Lycopen/Lutein [Centrum Silver Men Tablet] 1 tab PO DAILY 07/06/24 [History] Vit C/E/Zn/Coppr/Lutein/Zeaxan [Preservision Areds 2 Softgel] 1 cap PO BID 07/06/24 [History] fentaNYL 100MCG/HR PATCH [Duragesic 100MCG/HR] 1 patch TRANSDERM Q72H 07/06/24 [History] Cholecalciferol (Vitamin D3) [Vitamin D3 (50 Mcg = 2000 Iu) Chew Tab] 50 mcg PO DAILY 07/07/24 [History] Naloxone HCl [Narcan] 4 mg NASAL DIRECTED PRN 07/07/24 [History] Calcium Carb-Vit D 500Mg-5Mcg [Oscal 500+D 5 Mcg (200 Iu)] 1 each PO BID-W/MEALS #60 tab 07/11/24 [Rx] Citalopram Hydrobromide [CeleXA] 20 mg PO DAILY #30 tab 07/11/24 [Rx] Ondansetron Odt [Zofran Odt] 4 mg PO Q8HR PRN #30 tab 07/11/24 [Rx] Sennosides-Docusate Sodium [Senokot-S] 2 each PO BID #60 tab 07/11/24 [Rx] Terazosin [Hytrin] 5 mg PO DAILY #0 07/11/24 [Rx] dexAMETHasone ORAL [Hexadrol] 4 mg PO BID #46 tablet 07/11/24 [Rx] oxyCODONE HCL [OxyIR] 15 mg PO Q4H PRN 3 Days #90 tab 07/11/24 [Rx] traMADol HCL 25 mg PO BID 3 Days #60 tab 07/11/24 [Rx] Follow up Appointment(s)/Referral(s): Mariah Ball NPC [Nurse Practitioner] - 07/18/24 9:30 am (Appt is at [facility] located [address]) Nahun Giron MD [Primary Care Provider] - 07/14/24 12:00 pm () Patient Instructions/Handouts: Etodolac (By mouth), Ondansetron (By mouth), Citalopram (By mouth), Dexamethasone (By mouth), Calcium/Vitamin D Supplement (By mouth), Senna (By mouth), Chronic Pain (DC), Intravenous Chemotherapy (DC) Discharge Disposition: HOME WITH HOME HEALTH SERVICES
[2024-07-11] MEDS ORDERED: ETODOLAC 400 MG TAB PO SCH (21:00)
[2024-07-11] MEDS ORDERED: DEXAMETHASONE SOD PHOSPHATE 4 MG/ML 1 ML VIAL IVP SCH (21:00)
== END 2024-07-11 18:49 | disposition home health service (06) | DRG 948 ==
LOC: EC 17:53 → 5NMEDONC 20:50
PROVIDERS: ADMIT Internal Medicine; ATTEND Internal Medicine
DX: G89.3 Neoplasm related pain (acute) (chronic) (principal); C34.90 Malignant neoplasm of unspecified part of unspecified bronchus or lung; C77.9 Secondary and unspecified malignant neoplasm of lymph node, unspecified; C78.7 Secondary malignant neoplasm of liver and intrahepatic bile duct; E87.1 Hypo-osmolality and hyponatremia; C79.51 Secondary malignant neoplasm of bone; F41.9 Anxiety disorder, unspecified; F32.A Depression, unspecified; I10 Essential (primary) hypertension; E87.8 Other disorders of electrolyte and fluid balance, not elsewhere classified; K21.9 Gastro-esophageal reflux disease without esophagitis; D64.89 Other specified anemias; R09.02 Hypoxemia; E89.0 Postprocedural hypothyroidism; Z79.899 Other long term (current) drug therapy; K59.00 Constipation, unspecified; Z79.82 Long term (current) use of aspirin; Z79.890 Hormone replacement therapy; Z85.118 Personal history of other malignant neoplasm of bronchus and lung; Z85.850 Personal history of malignant neoplasm of thyroid; Z87.891 Personal history of nicotine dependence
CPT/HCPCS: 36415; 71045; 71046; 80048; 80053; 81001; 83605; 84145; 84484; 85025; 85027; 85610; 85730; 87040; 87070; 87205; 87449; 87636; 93005; 94760; 96361; 96365; 96372; 96375; 96376; 99285